=== PATIENT | female | born 1945 | race African-American/Black ===

== ENCOUNTER 2019-06-23 18:42 | Inpatient (IN) | payer MEDICARE, BC ==
[2019-06-23] MEDS ORDERED: NORMAL SALINE 1000 ML 1,000 ML IV ONE (19:28)
[2019-06-23 19:49] LABS: HEMATOCRIT 39.1 % (36.0-47.0); HEMOGLOBIN 13.1 g/dL (12.0-15.5); MEAN CORPUSCULAR HEMOGLOBIN 30.4 pg (27.0-33.4); MEAN CORPUSCULAR HGB CONC 33.6 g/dL (32.0-36.0); MEAN CORPUSCULAR VOLUME 90 fl (80-97); PLATELET COUNT 159 10^3/uL (150-450); RED BLOOD COUNT 4.32 10^6/uL (3.72-5.28); RED CELL DISTRIBUTION WIDTH 14.8 % (11.5-14.0); WHITE BLOOD COUNT 12.2 10^3/uL (4.0-10.5)
[2019-06-23 19:51] LABS: INTERNATIONAL RATION (INR) 1.11; PROTHROMBIN TIME 14.4 SEC (11.4-15.4)
[2019-06-23 19:52] LABS: APPEARANCE,URINE TURBID; BILIRUBIN,URINE NEGATIVE (NEGATIVE); COLOR,URINE AMBER; GLUCOSE, URINE NEGATIVE (NEGATIVE); KETONES,URINE NEGATIVE (NEGATIVE); PROTEIN,URINE 100 mg/dL (NEGATIVE); URINE SPECIFIC GRAVITY 1.013; UROBILINOGEN,URINE NEGATIVE mg/dL (<2.0)
[2019-06-23 20:01] LABS: ALBUMIN 3.6 g/dL (3.5-5.0); ALKALINE PHOSPHATASE 91 U/L (38-126); ANION GAP 10 (5-19); ASPARTATE AMINO TRANSFERASE 37 U/L (14-36); BILIRUBIN,DIRECT 0.3 mg/dL (0.0-0.4); BILIRUBIN,TOTAL 1.1 mg/dL (0.2-1.3); BLOOD UREA NITROGEN 19 mg/dL (7-20); CALCIUM 9.5 mg/dL (8.4-10.2); CARBON DIOXIDE 24 mmol/L (22-30); CHLORIDE 106 mmol/L (98-107); GLUCOSE 137 mg/dL (75-110); POTASSIUM 3.7 mmol/L (3.6-5.0)
[2019-06-23 20:07] LABS: TOTAL PROTEIN 6.7 g/dL (6.3-8.2)
[2019-06-23 20:22] LABS: ABSOLUTE LYMPHOCYTES# (MANUAL) 0.9 10^3/uL (0.5-4.7); ABSOLUTE MONOCYTES # (MANUAL) 1.7 10^3/uL (0.1-1.4); BAND NEUTROPHILS % (MANUAL) 3 % (3-5); BASOPHILS % (MANUAL) 0 % (0-2); EOSINOPHILS % (MANUAL) 0 % (0-6); LYMPHOCYTES % (MANUAL) 7 % (13-45); MONOCYTES % (MANUAL) 14 % (3-13); SEGMENTED NEUTROPHILS % (MAN) 76 % (42-78); TOTAL CELLS COUNTED 100
[2019-06-23 20:23] LABS: ANISOCYTOSIS SLIGHT; OVALOCYTES 1+; PLATELET COMMENT ADEQUATE; PLATELET LARGE PRESENT
[2019-06-23] MEDS ORDERED: CEFTRIAXONE 1 GM/D5W RTU 1 GM/50 ML RTUPB IV ONE (20:23)
[2019-06-23 21:02] LABS: VENOUS BLOOD BASE EXCESS 0.3 mmol/L; VENOUS BLOOD HCO3 25.3 mmol/L (20-32); VENOUS BLOOD PCO2 42.2 mmHg (35-63); VENOUS BLOOD PH 7.4 (7.30-7.42)
--- NOTE | 2019-06-23 22:52 | ER Document Report ---
ED General <CHANDNI BRIGGS - Last Filed: 06/24/19 09:26> - General TRAVEL OUTSIDE OF THE [place] IN LAST 30 DAYS: No <SEVERINO RICCI - Last Filed: 06/24/19 15:11> <LAURA SILVA - Last Filed: 06/24/19 15:52> - General Stated Complaint: WEAKNESS Time Seen by Provider: 06/23/19 20:22 - HPI Notes: Patient is a 73-year-old female the history of hemophilia who presents to the emergency department for evaluation. She states earlier today she just felt weak and poorly. She denies any known fevers prior to arrival. No nausea or vomiting. She does states she "did not feel good." No cough or shortness of breath. No runny nose or sore throat. She is been eating and drinking normally. The patient states she has had increased urinary frequency. She denies any diarrhea. (SEVERINO RICCI) - Related Data Allergies/Adverse Reactions: codeine Adverse Reaction (Verified 06/23/19 19:51) Past Medical History - General Information source: Patient - Social History Smoking Status: Former Smoker Chew tobacco use (# tins/day): No Frequency of alcohol use: None Drug Abuse: None Patient has suicidal ideation: No Patient has homicidal ideation: No Past Surgical History: Reports: Hx Pacemaker <SEVERINO RICCI - Last Filed: 06/24/19 15:11> - Social History Smoking Status: Unknown if Ever Smoked Family History: Reviewed & Not Pertinent <LAURA SILVA - Last Filed: 06/24/19 15:52> - Medical History Notes: Hemophilia (SEVERINO RICCI) Review of Systems - Review of Systems Constitutional: See HPI Genitourinary: See HPI -: Yes All other systems reviewed and negative <SEVERINO RICCI - Last Filed: 06/24/19 15:11> Physical Exam <SEVERINO RICCI - Last Filed: 06/24/19 15:11> - Vital signs Vitals: Resp BP Pulse Ox 18 126/59 H 98 06/23/19 19:32 06/23/19 19:32 06/23/19 19:32 - Notes Notes: This is a very pleasant 73-year-old female who appears her stated age, no acute distress. Vital signs reviewed, please refer to chart. Head is normocephalic, atraumatic. Pupils equal round, reactive to light. Neck is supple without meningismus. Heart is regular rate and rhythm. Lungs are clear to auscultation bilaterally. Abdomen is soft, mildly tender in the suprapubic region, normoactive bowel sounds throughout. No CVA tenderness. Extremities without cyanosis, clubbing. Posterior calves are nontender. Peripheral pulses are equal. Skin is warm and dry. Patient is awake, alert, neurological exam is nonfocal. (SEVERINO RICCI) Course - Laboratory Result Diagrams: 06/23/19 19:22 06/23/19 19:22 <CHANDNI BRIGGS - Last Filed: 06/24/19 09:26> - Laboratory Result Diagrams: 06/24/19 12:38 06/23/19 19:22 <SEVERINO RICCI - Last Filed: 06/24/19 15:11> - Laboratory Result Diagrams: 06/24/19 12:38 06/23/19 19:22 <LAURA SILVA - Last Filed: 06/24/19 15:52> - Re-evaluation Re-evalutation: 06/24/19 09:27 I was approached by the nurse to ascertain if we could give patient a dose of her Keflex. Patient was prescribed Keflex for her UTI. Patient has been waiting for her ride patiently since last night. 500 mg p.o. Keflex ordered. (CHANDNI BRIGGS) 06/23/19 22:49 Patient presents to the emergency department for evaluation. Her temperature is 100.2 here after Tylenol. She had a full septic work-up. She was given IV fluids. She has a very mild leukocytosis, but no other signs of organ dysfunction. She is feeling improved. She is found to have a urinary tract infection. This was sent for culture. I did give her IV Rocephin. She is only had symptoms for less than 24 hours. She has no nausea or vomiting. I will send her home with a prescription for Keflex. She is to follow-up closely with primary care this week. She understands if she develops worsening or new concerning symptoms of any sort she needs to return immediately to the emergency department for evaluation. She is amenable to this plan and was discharged. 06/24/19 02:12 I was notified by nursing that, while waiting for her ride, her temperature went back up to 100.5. Otherwise her vitals are stable, again she is not tachycardic or hypotensive. She is given 650 mg of Tylenol. Again she feels stable, improved, and comfortable with the idea of discharge. 06/24/19 15:11 I was notified upon my arrival to the ED the next day that patient's blood cultures had become positive. She was growing gram-negative bacteria. She had already been treated with Rocephin. Thankfully she was still in the emergency department. Medicine was contacted and she was admitted to the hospital. (SEVERINO RICCI) 06/24/19 12:06 I was informed by the staff that this nice patient had a blood culture turn + for gram - bacteria in her blood. Urine is + for E coli. I have discussed this with Dr. Brar and Dr. Castillo has graciously accepted the pt as an admission. (LAURA SILVA) - Vital Signs Vital signs: Temp Pulse Resp BP Pulse Ox 98.7 F 80 22 H 164/74 H 100 06/24/19 13:19 06/24/19 09:32 06/24/19 13:00 06/24/19 09:32 06/24/19 13:00 - Laboratory Laboratory results interpreted by me: 06/23/19 06/23/19 06/23/19 19:10 19:22 19:22 WBC 12.2 H RDW 14.8 H Lymphocytes % (Manual) 7 L Monocytes % (Manual) 14 H Abs Neuts (Manual) 9.6 H Abs Monocytes (Manual) 1.7 H Glucose 137 H AST 37 H Urine Protein 100 H Urine Blood MODERATE H Leukocyte Esterase Rfl LARGE H - EKG Interpretation by Me Additional EKG results interpreted by me: 06/23/19 22:51 AV pacing at 78 bpm (SEVERINO RICCI) Discharge <CHANDNI BRIGGS - Last Filed: 06/24/19 09:26> - Discharge Admitting Provider: Anna (Hospitalist) Unit Admitted: Medical Floor <SEVERINO RICCI - Last Filed: 06/24/19 15:11> - Discharge Admitting Provider: Anna (Hospitalist) Unit Admitted: Medical Floor <LAURA SILVA P - Last Filed: 06/24/19 15:52> - Discharge Clinical Impression: E coli bacteremia Sepsis Qualifiers: Sepsis type: Escherichia coli Sepsis acute organ dysfunction status: without acute organ dysfunction Qualified Code(s): A41.51 - Sepsis due to Escherichia coli [E. coli] Urinary tract infection Qualifiers: Urinary tract infection type: acute cystitis Hematuria presence: without hematuria Qualified Code(s): N30.00 - Acute cystitis without hematuria Condition: Stable Disposition: ADMITTED OBSERVATION
--- NOTE | 2019-06-23 22:57 | EKG REPORT ---
SEVERITY:- ABNORMAL ECG - A-V DUAL-PACED RHYTHM WITH SOME INHIBITION : Confirmed by: Kerri Fernando MD 23-Jun-2019 22:56:54
[2019-06-24] MEDS ORDERED: ACETAMINOPHEN 325 MG TABLET PO ONE ×3 (02:10→09:37)
[2019-06-24] MEDS ORDERED: CEPHALEXIN 500 MG CAPSULE PO ONE (09:26)
[2019-06-24 12:56] LABS: HEMATOCRIT 38.8 % (36.0-47.0); HEMOGLOBIN 12.7 g/dL (12.0-15.5); MEAN CORPUSCULAR HEMOGLOBIN 29.9 pg (27.0-33.4); MEAN CORPUSCULAR HGB CONC 32.8 g/dL (32.0-36.0); MEAN CORPUSCULAR VOLUME 91 fl (80-97); PLATELET COUNT 145 10^3/uL (150-450); RED BLOOD COUNT 4.26 10^6/uL (3.72-5.28); RED CELL DISTRIBUTION WIDTH 15.2 % (11.5-14.0)
[2019-06-24 13:34] LABS: ABSOLUTE LYMPHOCYTES# (MANUAL) 1.9 10^3/uL (0.5-4.7); ABSOLUTE MONOCYTES # (MANUAL) 1.8 10^3/uL (0.1-1.4); BAND NEUTROPHILS % (MANUAL) 3 % (3-5); BASOPHILS % (MANUAL) 1 % (0-2); EOSINOPHILS % (MANUAL) 1 % (0-6); LYMPHOCYTES % (MANUAL) 13 % (13-45); MONOCYTES % (MANUAL) 15 % (3-13); SEGMENTED NEUTROPHILS % (MAN) 64 % (42-78); TOTAL CELLS COUNTED 100
[2019-06-24 13:37] LABS: ANISOCYTOSIS SLIGHT; OVALOCYTES SLIGHT; PLATELET COMMENT DECREASED; PLATELET LARGE PRESENT; TEAR DROP CELLS SLIGHT; TOXIC GRANULATION SLIGHT; TOXIC VACUOLATION PRESENT
--- NOTE | 2019-06-24 13:46 | PDOC H&P ---
History of Present Illness Admission Date/PCP: 06/24/19 12:18 BHAKTI MCNALLY MD Patient complains of: fever History of Present Illness: NIEVES PRUITT is a 73 year old female with a past medical history of hemophilia who presented with fever. Patient reports that she is been having on and off fever and subjective chills in the past 2 to 3 days. She does report that she has also been experiencing urinary frequency. Denies hematuria or dysuria. In the ER, she was noted to have leukocytosis and urinary tract infection. Her blood culture also grew E. coli. Urine culture is growing gram-negative rods. Otherwise, he denies chest pain or shortness of breath. Past Surgical History Past Surgical History: Reports: Pacemaker Social History Smoking Status: Former Smoker Electronic Cigarette use?: No Family History Parental Family History Reviewed: Yes - No premature CAD Children Family History Reviewed: No Sibling(s) Family History Reviewed.: No Medication/Allergy Home Medications: Cephalexin Monohydrate [Keflex 500 mg Capsule] 500 mg PO QID #20 capsule 06/23/19 Allergies/Adverse Reactions: codeine Adverse Reaction (Verified 06/23/19 19:51) Review of Systems All systems: reviewed and no additional remarkable complaints except as stated - As mentioned in HPI Physical Exam Vital Signs: Temp Pulse Resp BP Pulse Ox 101.1 F H 80 18 164/74 H 99 06/24/19 09:32 06/24/19 09:32 06/24/19 09:32 06/24/19 09:32 06/24/19 09:32 Intake & Output 06/23/19 06/24/19 06/25/19 06:59 06:59 06:59 Intake Total 1050 Balance 1050 Weight 214 lb 15.211 oz General appearance: PRESENT: no acute distress, well-developed, well-nourished Head exam: PRESENT: atraumatic, normocephalic Eye exam: PRESENT: conjunctiva pink, EOMI, PERRLA. ABSENT: scleral icterus Ear exam: PRESENT: normal external ear exam Mouth exam: PRESENT: moist, tongue midline Neck exam: ABSENT: carotid bruit, JVD, lymphadenopathy, thyromegaly Respiratory exam: PRESENT: clear to auscultation jolene. ABSENT: rales, rhonchi, wheezes Cardiovascular exam: PRESENT: RRR. ABSENT: diastolic murmur, rubs, systolic murmur Pulses: PRESENT: normal dorsalis pedis pul GI/Abdominal exam: PRESENT: normal bowel sounds, soft. ABSENT: distended, guarding, mass, organolmegaly, rebound, tenderness Rectal exam: PRESENT: deferred Extremities exam: PRESENT: full ROM. ABSENT: calf tenderness, clubbing, pedal edema Neurological exam: PRESENT: alert, awake, oriented to person, oriented to place, oriented to time, oriented to situation, CN II-XII grossly intact. ABSENT: motor sensory deficit Results Laboratory Results: 06/23/19 19:22 06/23/19 19:22 06/23/19 06/23/19 06/23/19 19:10 19:22 19:22 WBC 12.2 H RBC 4.32 Hgb 13.1 Hct 39.1 MCV 90 MCH 30.4 MCHC 33.6 RDW 14.8 H Plt Count 159 Seg Neutrophils % Not Reportable VBG pH VBG pCO2 VBG HCO3 VBG Base Excess Sodium 139.9 Potassium 3.7 Chloride 106 Carbon Dioxide 24 Anion Gap 10 BUN 19 Creatinine 0.92 Est GFR ( Amer) > 60 Glucose 137 H Lactic Acid Calcium 9.5 Total Bilirubin 1.1 AST 37 H Alkaline Phosphatase 91 Total Protein 6.7 Albumin 3.6 Urine Color PERI Urine Appearance TURBID Urine pH 5.0 Ur Specific [place] 1.013 Urine Protein 100 H Urine Glucose (UA) NEGATIVE Urine Ketones NEGATIVE Urine Blood MODERATE H Urine RBC (Auto) 33 06/23/19 06/23/19 06/23/19 19:22 20:32 22:45 WBC RBC Hgb Hct MCV MCH MCHC RDW Plt Count Seg Neutrophils % VBG pH 7.40 VBG pCO2 42.2 VBG HCO3 25.3 VBG Base Excess 0.3 Sodium Potassium Chloride Carbon Dioxide Anion Gap BUN Creatinine Est GFR ( Amer) Glucose Lactic Acid 0.7 1.5 Calcium Total Bilirubin AST Alkaline Phosphatase Total Protein Albumin Urine Color Urine Appearance Urine pH Ur Specific [place] Urine Protein Urine Glucose (UA) Urine Ketones Urine Blood Urine RBC (Auto) 06/23/19 19:22 Troponin I 0.040 Assessment and Plan - Diagnosis (1) Acute pyelonephritis Is this a current diagnosis for this admission?: Yes Plan: Start patient IV Rocephin. Her blood culture also grew E. coli. Urine culture is growing gram-negative rods. (2) Sepsis Is this a current diagnosis for this admission?: Yes Plan: Secondary to pyelonephritis. Patient presented with leukocytosis and fever. She also has some thrombocytopenia and elevated AST. (3) E coli bacteremia Is this a current diagnosis for this admission?: Yes Plan: As per#1. 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 - Time Time Spent with patient: 25-34 minutes
[2019-06-24] MEDS: NORMAL SALINE 1000 ML 1,000 ML IV PRN (14:18)
[2019-06-24] MEDS: CEFTRIAXONE 1 GM/D5W RTU 1 GM/50 ML RTUPB IV SCH (18:29)
[2019-06-24] MEDS: ACETAMINOPHEN 325 MG TABLET PO PRN (22:43)
[2019-06-25] MEDS ORDERED: INFLUENZA QUAD (6MOS+) 2019-20 VAC 0.5 ML SYR IM ONE (03:29)
[2019-06-25] MEDS ORDERED: SIMETHICONE 80 MG TAB.CHEW PO ONE (11:00)
--- NOTE | 2019-06-25 13:43 | PDOC PROGRESS REPORT ---
Subjective Progress Note for:: 06/25/19 Subjective:: No acute event overnight. Upon encounter this morning, patient reports she feels better today. Denies chest pain or shortness of breath. Blood and urine cultures are growing E. coli. Reason For Visit: PYELONEPHRITIS, E.COLI BACTEREMIA Physical Exam Vital Signs: Temp Pulse Resp BP Pulse Ox 98.0 F 63 16 154/68 H 99 06/25/19 09:00 06/25/19 09:00 06/25/19 09:00 06/25/19 09:00 06/25/19 09:00 Intake & Output 06/24/19 06/25/19 06/26/19 06:59 06:59 06:59 Intake Total 1050 400 Balance 1050 400 Weight 214 lb 15.211 oz 207 lb 7.28 oz General appearance: PRESENT: no acute distress, well-developed, well-nourished Head exam: PRESENT: atraumatic, normocephalic Eye exam: PRESENT: conjunctiva pink, EOMI, PERRLA. ABSENT: scleral icterus Ear exam: PRESENT: normal external ear exam Mouth exam: PRESENT: moist, tongue midline Neck exam: ABSENT: carotid bruit, JVD, lymphadenopathy, thyromegaly Respiratory exam: PRESENT: clear to auscultation jolene. ABSENT: rales, rhonchi, wheezes Cardiovascular exam: PRESENT: RRR. ABSENT: diastolic murmur, rubs, systolic murmur Pulses: PRESENT: normal dorsalis pedis pul GI/Abdominal exam: PRESENT: normal bowel sounds, soft. ABSENT: distended, gu arding, mass, organolmegaly, rebound, tenderness Rectal exam: PRESENT: deferred Extremities exam: PRESENT: full ROM. ABSENT: calf tenderness, clubbing, pedal edema Neurological exam: PRESENT: alert, awake, oriented to person, CN II-XII grossly intact. ABSENT: motor sensory deficit Results Laboratory Results: 06/24/19 12:38 06/23/19 19:22 06/24/19 06/24/19 06/24/19 15:06 16:11 18:27 Lactic Acid Cancelled 1.6 1.2 06/23/19 19:10 Catheterized Urine Urine Culture - Final Escherichia Coli 06/23/19 20:32 Blood Blood Culture (PCR) - Final Escherichia Coli 02/26/20 19:22 Troponin I 0.040 Assessment and Plan - Diagnosis (1) Acute pyelonephritis Is this a current diagnosis for this admission?: Yes Plan: Blood and urine cultures are growing E. coli. Continue Rocephin. (2) Sepsis Qualifiers: Sepsis type: Escherichia coli Sepsis acute organ dysfunction status: without acute organ dysfunction Qualified Code(s): A41.51 - Sepsis due to Escherichia coli [E. coli] Is this a current diagnosis for this admission?: Yes Plan: Secondary to pyelonephritis. Patient presented with leukocytosis and fever. She also has some thrombocytopenia and elevated AST. (3) E coli bacteremia Is this a current diagnosis for this admission?: Yes Plan: As per#1. 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 - Time Time Spent with patient: 25-34 minutes
[2019-06-25] MEDS: CEFTRIAXONE 1 GM/D5W RTU 1 GM/50 ML RTUPB IV SCH (18:40)
--- NOTE | 2019-06-25 23:03 | RADIOLOGY REPORT (SQ) ---
EXAM DESCRIPTION: [facility]: CT ABDOMEN PELVIS WITHOUT IV CONTRAST CLINICAL HISTORY: 73 years Female; abd pain, pyelonephritis; TECHNIQUE: CT of the abdomen and pelvis without contrast. All CT scans at this facility use dose modulation, iterative reconstruction, and/or weight based dosing when appropriate to reduce radiation dose to as low as reasonably achievable. COMPARISON: None. FINDINGS: Small bilateral pleural effusions are less than 1 cm thick. Pacemaker wires are partially visualized. Abdomen: Liver:No focal lesions. No intrahepatic ductal distention. Gallbladder: There is likely small amount of pericholecystic edema. Mild fluid/edema also extends inferiorly into Morison's pouch. Pancreas:Within normal limits Spleen:Within normal limits Right kidney: No renal calculi. No definite ureteral calculi, although the ureter is mildly distended and there is artifact along the distal right ureter due to multiple surgical clips. Minimal right hydronephrosis. Left kidney:No hydronephrosis. No renal or ureteral calculi. Adrenal glands:Within normal limits Vascular structures:Within normal limits (although limited evaluation on noncontrast exam). Pelvis: Small bowel:No significant distention. Appendix:Within normal limits Colon:No distention or acute pericolonic edema. Minimal low-density fluid in the dependent portion of the pelvis. No free air. Bones: Chronic degenerative changes of the lumbar spine. No acute bone findings. Bladder: Unremarkable. Multiple pelvic phleboliths and surgical clips are noted. Uterus is not identified. Note that evaluation of the bowel and solid organs is somewhat limited due to lack of intravenous and oral contrast. IMPRESSION: 1. Pericholecystic edema and mild fluid/edema extending into Morison's pouch and in the pelvis, suspicious for acute cholecystitis. Consider gallbladder ultrasound. 2. Mild right hydroureter and hydronephrosis, but no definite calculi. Cannot exclude a distal right ureteral calculus due to artifact from pelvic surgical clips. Please correlate with urinalysis. 3. Bilateral pleural effusions
[2019-06-25] MEDS: NORMAL SALINE 1000 ML 1,000 ML IV PRN (23:49)
[2019-06-26 05:43] LABS: HEMATOCRIT 36.2 % (36.0-47.0); MEAN CORPUSCULAR HEMOGLOBIN 29.9 pg (27.0-33.4); MEAN CORPUSCULAR VOLUME 90 fl (80-97); PLATELET COUNT 144 10^3/uL (150-450); RED CELL DISTRIBUTION WIDTH 14.7 % (11.5-14.0); WHITE BLOOD COUNT 6.2 10^3/uL (4.0-10.5)
[2019-06-26 06:02] LABS: ANION GAP 7 (5-19); BLOOD UREA NITROGEN 20 mg/dL (7-20); CALCIUM 9.1 mg/dL (8.4-10.2); CARBON DIOXIDE 23 mmol/L (22-30); CHLORIDE 110 mmol/L (98-107); GLUCOSE 99 mg/dL (75-110); POTASSIUM 3.9 mmol/L (3.6-5.0)
[2019-06-26 06:05] LABS: ABSOLUTE LYMPHOCYTES# (MANUAL) 1.2 10^3/uL (0.5-4.7); ABSOLUTE MONOCYTES # (MANUAL) 1.7 10^3/uL (0.1-1.4); BASOPHILS % (MANUAL) 0 % (0-2); EOSINOPHILS % (MANUAL) 4 % (0-6); LYMPHOCYTES % (MANUAL) 20 % (13-45); PLATELET COMMENT DECREASED; RBC MORPHOLOGY COMMENT NORMO-CYTIC/CHROMIC; SEGMENTED NEUTROPHILS % (MAN) 48 % (42-78); TOTAL CELLS COUNTED 100; TOXIC VACUOLATION PRESENT
[2019-06-26 06:06] LABS: MONOCYTES % (MANUAL) 28 % (3-13)
[2019-06-26] MEDS: ACETAMINOPHEN 325 MG TABLET PO PRN (08:21)
--- NOTE | 2019-06-26 13:51 | PDOC PROGRESS REPORT ---
Subjective Progress Note for:: 06/26/19 Subjective:: 06/25: No acute event overnight. Upon encounter this morning, patient reports she feels better today. Denies chest pain or shortness of breath. Blood and urine cultures are growing E. coli. : No acute event overnight. Patient appears more awake and conversant today. She reports she feels better today. Denies chest pain or shortness of breath. She is AO to person and time and is able tell me its 06/26/19. She is able to remember me from yesterday but thinks that she is in [place]. Blood and urine cultures are growing E. coli. Reason For Visit: PYELONEPHRITIS, E.COLI BACTEREMIA Physical Exam Vital Signs: Temp Pulse Resp BP Pulse Ox 98.2 F 61 16 147/77 H 99 06/26/19 12:00 06/26/19 12:00 06/26/19 12:00 06/26/19 12:00 06/26/19 12:00 Intake & Output 06/25/19 06/26/19 06/27/19 06:59 06:59 06:59 Intake Total 400 1670 120 Balance 400 1670 120 Weight 207 lb 7.28 oz 211 lb 10.3 oz General appearance: PRESENT: no acute distress, well-developed, well-nourished Head exam: PRESENT: atraumatic, normocephalic Eye exam: PRESENT: conjunctiva pink, EOMI, PERRLA. ABSENT: scleral icterus Ear exam: PRESENT: normal external ear exam Mouth exam: PRESENT: moist, tongue midline Neck exam: ABSENT: carotid bruit, JVD, lymphadenopathy, thyromegaly Respiratory exam: PRESENT: clear to auscultation jolene. ABSENT: rales, rhonchi, wheezes Cardiovascular exam: PRESENT: RRR. ABSENT: diastolic murmur, rubs, systolic murmur Pulses: PRESENT: normal dorsalis pedis pul GI/Abdominal exam: PRESENT: normal bowel sounds, soft. ABSENT: distended, guarding, mass, organolmegaly, rebound, tenderness Rectal exam: PRESENT: deferred Extremities exam: PRESENT: full ROM. ABSENT: calf tenderness, clubbing, pedal edema Neurological exam: PRESENT: alert, awake, oriented to person, oriented to time, CN II-XII grossly intact. ABSENT: oriented to place, motor sensory deficit Results Laboratory Results: 06/26/19 04:40 06/26/19 04:40 06/26/19 06/26/19 04:40 04:40 WBC 6.2 RBC 4.00 Hgb 12.0 Hct 36.2 MCV 90 MCH 29.9 MCHC 33.0 RDW 14.7 H Plt Count 144 L Seg Neutrophils % Not Reportable Sodium 139.8 Potassium 3.9 Chloride 110 H Carbon Dioxide 23 Anion Gap 7 BUN 20 Creatinine 0.92 Est GFR ( Amer) > 60 Glucose 99 Calcium 9.1 06/23/19 20:32 Blood Blood Culture (PCR) - Final Escherichia Coli 06/23/19 20:32 Blood Blood Culture - Final Escherichia Coli 06/23/19 19:22 Troponin I 0.040 Impressions: Abdomen/Pelvis CT 06/25/19 00:00 IMPRESSION: 1. Pericholecystic edema and mild fluid/edema extending into Morison's pouch and in the pelvis, suspicious for acute cholecystitis. Consider gallbladder ultrasound. 2. Mild right hydroureter and hydronephrosis, but no definite calculi. Cannot exclude a distal right ureteral calculus due to artifact from pelvic surgical clips. Please correlate with urinalysis. 3. Bilateral pleural effusions Assessment and Plan - Diagnosis (1) Acute pyelonephritis Is this a current diagnosis for this admission?: Yes Plan: Blood and urine cultures are growing E. coli. Continue Rocephin. (2) Sepsis Qualifiers: Sepsis type: Escherichia coli Sepsis acute organ dysfunction status: without acute organ dysfunction Qualified Code(s): A41.51 - Sepsis due to Escherichia coli [E. coli] Is this a current diagnosis for this admission?: Yes Plan: Secondary to pyelonephritis. Patient presented with leukocytosis and fever. She also has some thrombocytopenia and elevated AST. (3) E coli bacteremia Is this a current diagnosis for this admission?: Yes Plan: As per#1. 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 - Time Time Spent with patient: 25-34 minutes
[2019-06-26] MEDS: CEFTRIAXONE 1 GM/D5W RTU 1 GM/50 ML RTUPB IV SCH (17:14)
[2019-06-27] MEDS: NORMAL SALINE 1000 ML 1,000 ML IV PRN (02:33)
[2019-06-27] MEDS: ACETAMINOPHEN 325 MG TABLET PO PRN (04:09)
[2019-06-27] MEDS ORDERED: HYDRALAZINE HCL INJ/PF 20 MG/1 ML SDV IV PRN (08:28)
[2019-06-27] MEDS: LOSARTAN POTASSIUM 50 MG TABLET PO SCH (09:08)
[2019-06-27] MEDS ORDERED: HALOPERIDOL LACTATE INJ 5 MG/1 ML VIAL IV PRN (10:12)
[2019-06-27] MEDS ORDERED: HALOPERIDOL LACTATE INJ 5 MG/1 ML VIAL IV ONE (10:45)
--- NOTE | 2019-06-27 11:25 | RADIOLOGY REPORT (SQ) ---
EXAM DESCRIPTION: U/S ABDOMEN LTD W/DOPPLER COMPLETED DATE/TIME: 06/27/2019 10:57 am REASON FOR STUDY: RUQ US, abd pain, assess for cholecystitis COMPARISON: CT dated 06/25/2019. TECHNIQUE: Dynamic and static grayscale images acquired of the abdomen and recorded on PACS. Additio nal selected color Doppler and spectral images recorded. LIMITATIONS: None. FINDINGS: PANCREAS: No masses. Visualized pancreatic duct normal caliber. LIVER: No masses. Echotexture normal. LIVER VASCULATURE: Normal directional flow of the main portal vein and hepatic veins. GALLBLADDER: No stones. Normal wall thickness. No pericholecystic fluid. ULTRASOUND-DETECTED FUCHS'S SIGN: Negative. INTRAHEPATIC DUCTS AND COMMON DUCT: CBD and intrahepatic ducts normal caliber. No filling defects. INFERIOR VENA CAVA: Normal flow. AORTA: No aneurysm. RIGHT KIDNEY: Normal size. Normal echogenicity. No solid or suspicious masses. No hydronephrosis. No calcifications. PERITONEAL AND RIGHT PLEURAL SPACE: No ascites or effusions. OTHER: No other significant findings. IMPRESSION: NORMAL RIGHT UPPER QUADRANT ULTRASOUND. TECHNICAL DOCUMENTATION: JOB ID: [id number] 2010 [employer]- All Rights Reserved Reading location - IP/workstation name: [email or web address]
--- NOTE | 2019-06-27 11:54 | PDOC PROGRESS REPORT ---
Subjective Progress Note for:: 06/27/19 Subjective:: 06/25: No acute event overnight. Upon encounter this morning, patient reports she feels better today. Denies chest pain or shortness of breath. Blood and urine cultures are growing E. coli. : No acute event overnight. Patient appears more awake and conversant today. She reports she feels better today. Denies chest pain or shortness of breath. She is AO to person and time and is able tell me its 06/26/19. She is able to remember me from yesterday but thinks that she is in [place]. Blood and urine cultures are growing E. coli. 06/26: No acute event overnight. Upon encounter this morning, patient denies acute complaints. Denies chest pain, shortness of breath or abdominal pain. Later after encounter, RN reported that patient was getting confused. On reassessment, she is oriented to person. She thinks that I am the physical therapist and keeps on saying she needs to get her clothes down the hallway. Otherwise, she is not in any distress. Reason For Visit: PYELONEPHRITIS, E.COLI BACTEREMIA Physical Exam Vital Signs: Temp Pulse Resp BP Pulse Ox 98.6 F 68 15 147/77 H 99 06/27/19 07:55 06/27/19 07:55 06/27/19 07:55 06/27/19 09:54 06/27/19 07:55 Intake & Output 06/26/19 06/27/19 06/28/19 06:59 06:59 06:59 Intake Total 1670 1290 Balance 1670 1290 Weight 211 lb 10.3 oz 208 lb 1.862 oz General appearance: PRESENT: no acute distress, well-developed, well-nourished Head exam: PRESENT: atraumatic, normocephalic Eye exam: PRESENT: conjunctiva pink, EOMI, PERRLA. ABSENT: scleral icterus Ear exam: PRESENT: normal external ear exam Mouth exam: PRESENT: moist, tongue midline Neck exam: ABSENT: carotid bruit, JVD, lymphadenopathy, thyromegaly Respiratory exam: PRESENT: clear to auscultation jolene. ABSENT: rales, rhonchi, wheezes Cardiovascular exam: PRESENT: RRR. ABSENT: diastolic murmur, rubs, systolic mu rmur Pulses: PRESENT: normal dorsalis pedis pul GI/Abdominal exam: PRESENT: normal bowel sounds, soft. ABSENT: distended, guarding, mass, organolmegaly, rebound, tenderness Rectal exam: PRESENT: deferred Extremities exam: PRESENT: full ROM. ABSENT: calf tenderness, clubbing, pedal edema Neurological exam: PRESENT: alert, awake, oriented to person, CN II-XII grossly intact. ABSENT: oriented to place, motor sensory deficit Results Laboratory Results: 06/26/19 04:40 06/26/19 04:40 06/26/19 04:40 TSH 1.32 06/23/19 19:22 Blood Blood Culture - Final Escherichia Coli 06/23/19 20:32 Blood Blood Culture (PCR) - Final Escherichia Coli 06/23/19 20:32 Blood Blood Culture - Final Escherichia Coli 06/23/19 19:22 Troponin I 0.040 Impressions: Abdomen/Pelvis CT 06/25/19 00:00 IMPRESSION: 1. Pericholecystic edema and mild fluid/edema extending into Morison's pouch and in the pelvis, suspicious for acute cholecystitis. Consider gallbladder ultrasound. 2. Mild right hydroureter and hydronephrosis, but no definite calculi. Cannot exclude a distal right ureteral calculus due to artifact from pelvic surgical clips. Please correlate with urinalysis. 3. Bilateral pleural effusions Abdomen Ultrasound 06/27/19 00:00 IMPRESSION: NORMAL RIGHT UPPER QUADRANT ULTRASOUND. Assessment and Plan - Diagnosis (1) Acute pyelonephritis Is this a current diagnosis for this admission?: Yes Plan: Blood and urine cultures are growing E. coli. Continue Rocephin. (2) Sepsis Qualifiers: Sepsis type: Escherichia coli Sepsis acute organ dysfunction status: without acute organ dysfunction Qualified Code(s): A41.51 - Sepsis due to Escherichia coli [E. coli] Is this a current diagnosis for this admission?: Yes Plan: Secondary to pyelonephritis. Patient presented with leukocytosis and fever. She also had some thrombocytopenia and elevated AST. (3) E coli bacteremia Is this a current diagnosis for this admission?: Yes Plan: As per#1. 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 (5) Acute metabolic encephalopathy Is this a current diagnosis for this admission?: Yes Plan: Possibly related to patient's sepsis. However her sepsis is imroving. Question if she has some underlying concurrent psychiatric issues. We will try to get records from PCP. - Time Time Spent with patient: 25-34 minutes
--- NOTE | 2019-06-27 13:33 | RADIOLOGY REPORT (SQ) ---
EXAM DESCRIPTION: CT HEAD WITHOUT COMPLETED DATE/TIME: 06/27/2019 1:21 pm REASON FOR STUDY: AMS COMPARISON: None. TECHNIQUE: Axial images acquired through the brain without intravenous contrast. Images reviewed wi th bone, brain and subdural windows. Additional sagittal and coronal reconstructions were generated. Images stored on PACS. All CT scanners at this facility use dose modulation, iterative reconstruction, and/or weight based d osing when appropriate to reduce radiation dose to as low as reasonably achievable (ALARA). [facility]: Dose Right [facility]: CareDose [facility]: Dose Right [facility]: Teradose 4D [facility]: [employer] RADIATION DOSE: CT Rad equipment meets quality standard of care and radiation dose reduction techniq ues were employed. CTDIvol: 53.2 mGy. DLP: 964 mGy-cm.mGy. LIMITATIONS: None. FINDINGS: VENTRICLES: Prominent. CEREBRUM: No masses. No hemorrhage. No midline shift. Areas of low density in the white matter mos t likely due to chronic micro-vascular ischemic change. No evidence for acute infarction. CEREBELLUM: No masses. No hemorrhage. No alteration of density. No evidence for acute infarction. EXTRAAXIAL SPACES: Age-related involutional change. No fluid collections. No masses. ORBITS AND GLOBE: No intra- or extraconal masses. Normal contour of globe without masses. CALVARIUM: No fracture. PARANASAL SINUSES: No fluid or mucosal thickening. SOFT TISSUES: No mass or hematoma. OTHER: No other significant finding. IMPRESSION: CHRONIC CHANGES OF ATROPHY AND MICROVASCULAR ISCHEMIA. NO ACUTE PROCESS. EVIDENCE OF ACUTE STROKE: NO. TECHNICAL DOCUMENTATION: JOB ID: [id number] Quality ID # [id number]: Final reports with documentation of one or more dose reduction techniques (e.g., Au tomated exposure control, adjustment of the mA and/or kV according to patient size, use of iterative reconstruction technique) 2010 [employer]- All Rights Reserved Reading location - IP/workstation name: [email or web address]
[2019-06-27] MEDS: CEFTRIAXONE 1 GM/D5W RTU 1 GM/50 ML RTUPB IV SCH (17:54)
[2019-06-28] MEDS: NORMAL SALINE 1000 ML 1,000 ML IV PRN (01:05)
[2019-06-28] MEDS: ACETAMINOPHEN 325 MG TABLET PO PRN ×2 (01:41→22:12)
[2019-06-28] MEDS: LOSARTAN POTASSIUM 50 MG TABLET PO SCH (09:07)
--- NOTE | 2019-06-28 12:15 | PDOC PROGRESS REPORT ---
Subjective Progress Note for:: 06/28/19 Subjective:: 06/25: No acute event overnight. Upon encounter this morning, patient reports she feels better today. Denies chest pain or shortness of breath. Blood and urine cultures are growing E. coli. : No acute event overnight. Patient appears more awake and conversant today. She reports she feels better today. Denies chest pain or shortness of breath. She is AO to person and time and is able tell me its 06/26/19. She is able to remember me from yesterday but thinks that she is in [place]. Blood and urine cultures are growing E. coli. 06/26: No acute event overnight. Upon encounter this morning, patient denies acute complaints. Denies chest pain, shortness of breath or abdominal pain. Later after encounter, RN reported that patient was getting confused. On reassessment, she is oriented to person. She thinks that I am the physical therapist and keeps on saying she needs to get her clothes down the hallway. Otherwise, she is not in any distress. 06/27: Patient had episodes of worsening confusion last night. She has lucid intervals where she is well oriented but does have episodes where she is fixated and just expressed that we are deliberately holding here against her will. She also verbalized nursing staff this morning that there were a group of people laughing at her in her room. Otherwise, she is participating with physical therapy and is not in acute distress. Unable to get hold of the next of kin at the moment. Unsure if she has underlying dementia or psych issues. Her sepsis has been resolving but she continues to have episodes of confusion and hallucinations. Will consult psych for further evaluation. Reason For Visit: PYELONEPHRITIS, E.COLI BACTEREMIA Physical Exam Vital Signs: Temp Pulse Resp BP Pulse Ox 98.4 F 83 16 148/76 H 100 06/28/19 07:20 06/28/19 07:20 06/28/19 07:20 06/28/19 07:20 06/28/19 07:20 Intake & Output 06/27/19 06/28/19 06/29/19 06:59 06:59 06:59 Intake Total 1290 1410 Balance 1290 1410 Weight 208 lb 1.862 oz 202 lb 6.15 oz General appearance: PRESENT: no acute distress, well-developed, well-nourished Head exam: PRESENT: atraumatic, normocephalic Eye exam: PRESENT: conjunctiva pink, EOMI, PERRLA. ABSENT: scleral icterus Ear exam: PRESENT: normal external ear exam Mouth exam: PRESENT: moist, tongue midline Neck exam: ABSENT: carotid bruit, JVD, lymphadenopathy, thyromegaly Respiratory exam: PRESENT: clear to auscultation jolene. ABSENT: rales, rhonchi, wheezes Cardiovascular exam: PRESENT: RRR. ABSENT: diastolic murmur, rubs, systolic murmur Pulses: PRESENT: normal dorsalis pedis pul GI/Abdominal exam: PRESENT: normal bowel sounds, soft. ABSENT: distended, guarding, mass, organolmegaly, rebound, tenderness Rectal exam: PRESENT: deferred Neurological exam: PRESENT: alert, awake, oriented to person, oriented to place, oriented to time, CN II-XII grossly intact. ABSENT: motor sensory deficit Results Laboratory Results: 06/26/19 04:40 06/26/19 04:40 06/23/19 19:22 Troponin I 0.040 Impressions: Abdomen/Pelvis CT 06/25/19 00:00 IMPRESSION: 1. Pericholecystic edema and mild fluid/edema extending into Morison's pouch and in the pelvis, suspicious for acute cholecystitis. Consider gallbladder ultrasound. 2. Mild right hydroureter and hydronephrosis, but no definite calculi. Cannot exclude a distal right ureteral calculus due to artifact from pelvic surgical clips. Please correlate with urinalysis. 3. Bilateral pleural effusions Abdomen Ultrasound 06/27/19 00:00 IMPRESSION: NORMAL RIGHT UPPER QUADRANT ULTRASOUND. Head CT 06/27/19 00:00 IMPRESSION: CHRONIC CHANGES OF ATROPHY AND MICROVASCULAR ISCHEMIA. NO ACUTE PROCESS. EVIDENCE OF ACUTE STROKE: NO. Assessment and Plan - Diagnosis (1) Acute pyelonephritis Is this a current diagnosis for this admission?: Yes Plan: Blood and urine cultures are growing E. coli. Continue Rocephin. (2) Sepsis Qualifiers: Sepsis type: Escherichia coli Sepsis acute organ dysfunction status: without acute organ dysfunction Qualified Code(s): A41.51 - Sepsis due to Escherichia coli [E. coli] Is this a current diagnosis for this admission?: Yes Plan: Secondary to pyelonephritis. Patient presented with leukocytosis and fever. She also had some thrombocytopenia and elevated AST. (3) E coli bacteremia Is this a current diagnosis for this admission?: Yes Plan: As per#1. 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 (5) Acute metabolic encephalopathy Is this a current diagnosis for this admission?: Yes Plan: Possibly related to patient's sepsis. However her sepsis is imroving. Question if she has some underlying concurrent psychiatric issues. We will try to get records from PCP. 06/27: CT of the head unremarkable. Sepsis is resolving but she continues to have episodes of confusion and hallucination. Will consult psych for further elevation. - Time Time Spent with patient: 25-34 minutes
[2019-06-28 14:34] LABS: PATH REVIEW PATHOLOGIST REVIEWED
[2019-06-28] MEDS: CEFTRIAXONE 1 GM/D5W RTU 1 GM/50 ML RTUPB IV SCH (17:20)
[2019-06-29] MEDS: NORMAL SALINE 1000 ML 1,000 ML IV PRN (05:44)
[2019-06-29] MEDS: LOSARTAN POTASSIUM 50 MG TABLET PO SCH (09:50)
--- NOTE | 2019-06-29 12:12 | PDOC PROGRESS REPORT ---
Subjective Progress Note for:: 06/29/19 Reason For Visit: PYELONEPHRITIS, E.COLI BACTEREMIA 06/29/2019 Patient admitted for pyelonephritis, E. coli Physical Exam Vital Signs: Temp Pulse Resp BP Pulse Ox 97.4 F 78 20 155/66 H 99 06/29/19 08:07 06/29/19 08:07 06/29/19 08:07 06/29/19 08:07 06/29/19 08:07 Intake & Output 06/28/19 06/29/19 06/30/19 06:59 06:59 06:59 Intake Total 1410 1770 Balance 1410 1770 Weight 91.8 kg 94.2 kg General appearance: PRESENT: no acute distress - Sitting up in bed in no distress Respiratory exam: PRESENT: clear to auscultation jolene. ABSENT: rales, rhonchi, wheezes Cardiovascular exam: PRESENT: RRR. ABSENT: diastolic murmur, rubs, systolic murmur Neurological exam: PRESENT: alert, awake, oriented to person, oriented to place, oriented to time, oriented to situation, CN II-XII grossly intact. ABSENT: motor sensory deficit Psychiatric exam: PRESENT: appropriate affect, normal mood. ABSENT: homicidal ideation, suicidal ideation Results Laboratory Results: 06/26/19 04:40 06/26/19 04:40 06/23/19 19:22 Troponin I 0.040 Impressions: Abdomen/Pelvis CT 06/25/19 00:00 IMPRESSION: 1. Pericholecystic edema and mild fluid/edema extending into Morison's pouch and in the pelvis, suspicious for acute cholecystitis. Consider gallbladder ultrasound. 2. Mild right hydroureter and hydronephrosis, but no definite calculi. Cannot exclude a distal right ureteral calculus due to artifact from pelvic surgical clips. Please correlate with urinalysis. 3. Bilateral pleural effusions Abdomen Ultrasound 06/27/19 00:00 IMPRESSION: NORMAL RIGHT UPPER QUADRANT ULTRASOUND. Head CT 06/27/19 00:00 IMPRESSION: CHRONIC CHANGES OF ATROPHY AND MICROVASCULAR ISCHEMIA. NO ACUTE PROCESS. EVIDENCE OF ACUTE STROKE: NO. Assessment and Plan - Diagnosis (1) Acute pyelonephritis Is this a current diagnosis for this admission?: Yes (2) E coli bacteremia Is this a current diagnosis for this admission?: Yes (3) Urinary tract infection Qualifiers: Urinary tract infection type: acute cystitis Hematuria presence: without hematuria Qualified Code(s): N30.00 - Acute cystitis without hematuria Is this a current diagnosis for this admission?: Yes - Plan Summary Summary: 06/29/2019 Pressure 97.4 pulse 78 blood pressure 155/66 O2 sat 99% on room air Labs have not been checked in several days we will repeat these today Blood cultures 2 out of 2 initially grew out E. coli second set of blood culture showed no growth in 72 hours Urine culture grew out E. coli as well.. Everything appears to be sensitive to Rocephin which is what she is on now Psychiatry has been consulted for episodes of hallucination and confusion. according to the chart patient was taking no psychiatric medications prior to coming in. CT head scan shows microvascular ischemic changes but no acute infarct Sepsis is clearing up. Waiting on [facility] for discharge placement. - Time Time Spent with patient: 25-34 minutes
[2019-06-29 13:10] LABS: HEMATOCRIT 38.1 % (36.0-47.0); MEAN CORPUSCULAR HEMOGLOBIN 30.6 pg (27.0-33.4); MEAN CORPUSCULAR HGB CONC 34.1 g/dL (32.0-36.0); MEAN CORPUSCULAR VOLUME 90 fl (80-97); PLATELET COUNT 236 10^3/uL (150-450); RED BLOOD COUNT 4.24 10^6/uL (3.72-5.28); RED CELL DISTRIBUTION WIDTH 14.7 % (11.5-14.0); WHITE BLOOD COUNT 4.2 10^3/uL (4.0-10.5)
[2019-06-29 13:30] LABS: ANION GAP 11 (5-19); BLOOD UREA NITROGEN 20 mg/dL (7-20); CALCIUM 9.3 mg/dL (8.4-10.2); CARBON DIOXIDE 26 mmol/L (22-30); CHLORIDE 107 mmol/L (98-107); GLUCOSE 129 mg/dL (75-110); POTASSIUM 3.8 mmol/L (3.6-5.0)
[2019-06-29 13:36] LABS: ABSOLUTE LYMPHOCYTES# (MANUAL) 2.4 10^3/uL (0.5-4.7); ABSOLUTE MONOCYTES # (MANUAL) 0.4 10^3/uL (0.1-1.4); BASOPHILS % (MANUAL) 1 % (0-2); EOSINOPHILS % (MANUAL) 2 % (0-6); LYMPHOCYTES % (MANUAL) 48 % (13-45); MONOCYTES % (MANUAL) 9 % (3-13); SEGMENTED NEUTROPHILS % (MAN) 30 % (42-78); TOTAL CELLS COUNTED 100
[2019-06-29 13:38] LABS: PLATELET COMMENT ADEQUATE; RBC MORPHOLOGY COMMENT NORMO-CYTIC/CHROMIC
[2019-06-29] MEDS: CEFTRIAXONE 1 GM/D5W RTU 1 GM/50 ML RTUPB IV SCH (17:18)
--- NOTE | 2019-06-29 20:55 | PDOC TRANSFER SUMMARY ---
Impression - Admit/DC Date/PCP Admission Date/Primary Care Provider: 06/24/19 12:25 BHAKTI MCNALLY MD Discharge Date: 06/30/19 - Discharge Diagnosis (1) Acute pyelonephritis Is this a current diagnosis for this admission?: Yes (2) E coli bacteremia Is this a current diagnosis for this admission?: Yes (3) Urinary tract infection Is this a current diagnosis for this admission?: Yes - Assessment Summary: 06/29/2019 Pressure 97.4 pulse 78 blood pressure 155/66 O2 sat 99% on room air Labs have not been checked in several days we will repeat these today Blood cultures 2 out of 2 initially grew out E. coli second set of blood culture showed no growth in 72 hours Urine culture grew out E. coli as well.. Everything appears to be sensitive to Rocephin which is what she is on now Psychiatry has been consulted for episodes of hallucination and confusion. according to the chart patient was taking no psychiatric medications prior to coming in. CT head scan shows microvascular ischemic changes but no acute infarct Sepsis is clearing up. Waiting on [facility] for discharge placement. Patient was originally admitted to the hospital for complaint of fever, chills for 2 to 3 days. Patient also had been having urinary frequency.. Patient's urine culture and set of blood cultures grew out E. coli second set of blood cultures were negative x72 hours Patient was admitted with #1 acute pyelonephritis #2 sepsis #3 E. coli bacteremia #4 hemophilia During my discussion with the patient she is awake alert oriented and shows no behavioral issues. I believe her hallucinations and confusion were on the basis of her sepsis which is cleared. Past for now is just wait and see what it is and it is coming back I faxed Patient will be discharged to [facility] facility on 06/30/2019 Patient's Rocephin will be transitioned to Keflex 250 mg 1 every 8 hours for the next 5 days. Medications include Cozaar 50 mg daily Patient is medically stable to transfer to group home facility - Additional Information Resuscitation Status: Full Code Discharge Diet: As Tolerated Discharge Activity: Activity As Tolerated Referrals: BHAKTI MCNALLY MD [Primary Care Provider] - Follow up as needed Prescriptions: Cephalexin Monohydrate [Keflex 500 mg Capsule] 500 mg PO QID #20 capsule Home Medications: Cephalexin Monohydrate [Keflex 500 mg Capsule] 500 mg PO QID #20 capsule 06/23/19 History of Present Illiness History of Present Illness: NIEVES PRUITT is a 73 year old female Physical Exam Vital Signs: Temp Pulse Resp BP Pulse Ox 97.2 F 62 20 118/40 L 97 06/29/19 17:32 06/29/19 17:32 06/29/19 17:32 06/29/19 17:32 06/29/19 12:17 Intake & Output 06/28/19 06/29/19 06/30/19 06:59 06:59 06:59 Intake Total 1410 1770 1168 Balance 1410 1770 1168 Weight 91.8 kg 94.2 kg Results Laboratory Results: WBC 4.2 10^3/uL (4.0-10.5) 06/29/19 12:52 RBC 4.24 10^6/uL (3.72-5.28) 06/29/19 12:52 Hgb 13.0 g/dL (12.0-15.5) 06/29/19 12:52 Hct 38.1 % (36.0-47.0) 06/29/19 12:52 MCV 90 fl (80-97) 06/29/19 12:52 MCH 30.6 pg (27.0-33.4) 06/29/19 12:52 MCHC 34.1 g/dL (32.0-36.0) 06/29/19 12:52 RDW 14.7 % (11.5-14.0) H 06/29/19 12:52 Plt Count 236 10^3/uL (150-450) 06/29/19 12:52 Lymph % (Auto) Not Reportable 06/29/19 12:52 [place] % (Auto) Not Reportable 06/29/19 12:52 Eos % (Auto) Not Reportable 06/29/19 12:52 Baso % (Auto) Not Reportable 06/29/19 12:52 Absolute Neuts (auto) Not Reportable 06/29/19 12:52 Absolute Lymphs (auto) Not Reportable 06/29/19 12:52 Absolute Monos (auto) Not Reportable 06/29/19 12:52 Absolute Eos (auto) Not Reportable 06/29/19 12:52 Absolute Basos (auto) Not Reportable 06/29/19 12:52 Total Counted 100 06/29/19 12:52 Seg Neutrophils % Not Reportable 06/29/19 12:52 Seg Neuts % (Manual) 30 % (42-78) L 06/29/19 12:52 Band Neutrophils % 3 % (3-5) 06/24/19 12:38 Lymphocytes % (Manual) 48 % (13-45) H 06/29/19 12:52 Atypical Lymphs % 10 % (0) 06/29/19 12:52 Monocytes % (Manual) 9 % (3-13) 06/29/19 12:52 Eosinophils % (Manual) 2 % (0-6) 06/29/19 12:52 Basophils % (Manual) 1 % (0-2) 06/29/19 12:52 Abs Neuts (Manual) 1.3 10^3/uL (1.7-8.2) L 06/29/19 12:52 Abs Lymphs (Manual) 2.4 10^3/uL (0.5-4.7) 06/29/19 12:52 Abs Monocytes (Manual) 0.4 10^3/uL (0.1-1.4) 06/29/19 12:52 Absolute Eos (Manual) 0.1 10^3/uL (0.0-0.6) 06/29/19 12:52 Abs Basophils (Manual) 0.0 10^3/uL (0.0-0.2) 06/29/19 12:52 Toxic Granulation SLIGHT 06/24/19 12:38 Toxic Vacuolation PRESENT 06/26/19 04:40 Dohle Bodies PRESENT 06/24/19 12:38 Large Platelets PRESENT 06/24/19 12:38 Platelet Comment ADEQUATE 06/29/19 12:52 Anisocytosis SLIGHT 06/24/19 12:38 Tear Drop Cells SLIGHT 06/24/19 12:38 Ovalocytes SLIGHT 06/24/19 12:38 RBC Morph Comment NORMO-CYTIC/CHROMIC 06/29/19 12:52 PT 14.4 SEC (11.4-15.4) 06/23/19 19:22 INR 1.11 06/23/19 19:22 VBG pH 7.40 (7.30-7.42) 06/23/19 20:32 VBG pCO2 42.2 mmHg (35-63) 06/23/19 20:32 VBG HCO3 25.3 mmol/L (20-32) 06/23/19 20:32 VBG Base Excess 0.3 mmol/L 06/23/19 20:32 Sodium 144.0 mmol/L (137-145) 06/29/19 12:52 Potassium 3.8 mmol/L (3.6-5.0) 06/29/19 12:52 Chloride 107 mmol/L (98-107) 06/29/19 12:52 Carbon Dioxide 26 mmol/L (22-30) 06/29/19 12:52 Anion Gap 11 (5-19) 06/29/19 12:52 BUN 20 mg/dL (7-20) 06/29/19 12:52 Creatinine 0.81 mg/dL (0.52-1.25) 06/29/19 12:52 Est GFR ( Amer) > 60 (>60) 06/29/19 12:52 Est GFR (MDRD) Non-Af > 60 (>60) 06/29/19 12:52 Glucose 129 mg/dL (75-110) H 06/29/19 12:52 Lactic Acid 1.2 mmol/L (0.7-2.1) 06/24/19 18:27 Calcium 9.3 mg/dL (8.4-10.2) 06/29/19 12:52 Total Bilirubin 1.1 mg/dL (0.2-1.3) 06/23/19 19:22 Direct Bilirubin 0.3 mg/dL (0.0-0.4) 06/23/19 19:22 Neonat Total Bilirubin Not Reportable 06/23/19 19:22 Neonat Direct Bilirubin Not Reportable 06/23/19 19:22 Neonat Indirect Bili Not Reportable 06/23/19 19:22 AST 37 U/L (14-36) H 06/23/19 19:22 ALT 25 U/L (<35) 06/23/19 19:22 Alkaline Phosphatase 91 U/L (38-126) 06/23/19 19:22 Troponin I 0.040 ng/mL 06/23/19 19:22 Total Protein 6.7 g/dL (6.3-8.2) 06/23/19 19:22 Albumin 3.6 g/dL (3.5-5.0) 06/23/19 19:22 TSH 1.32 uIU/mL (0.47-4.68) 06/26/19 04:40 Urine Color PERI 06/23/19 19:10 Urine Appearance TURBID 06/23/19 19:10 Urine pH 5.0 (5.0-9.0) 06/23/19 19:10 Ur Specific [place] 1.013 06/23/19 19:10 Urine Protein 100 mg/dL (NEGATIVE) H 06/23/19 19:10 Urine Glucose (UA) NEGATIVE mg/dL (NEGATIVE) 06/23/19 19:10 Urine Ketones NEGATIVE mg/dL (NEGATIVE) 06/23/19 19:10 Urine Blood MODERATE (NEGATIVE) H 06/23/19 19:10 Urine Nitrite (Reflex) NEGATIVE (NEGATIVE) 06/23/19 19:10 Urine Bilirubin NEGATIVE (NEGATIVE) 06/23/19 19:10 Urine Urobilinogen NEGATIVE mg/dL (<2.0) 06/23/19 19:10 Leukocyte Esterase Rfl LARGE (NEGATIVE) H 06/23/19 19:10 Urine RBC (Auto) 33 /HPF 06/23/19 19:10 Urine Bacteria (Auto) 1+ /HPF 06/23/19 19:10 Urine WBC (Reflex) > 182 /HPF 06/23/19 19:10 Urine WBC Clumps MANY /HPF 06/23/19 19:10 Urine Ascorbic Acid NEGATIVE (NEGATIVE) 06/23/19 19:10 Slides for Path Review PATHOLOGIST REVIEWED 06/26/19 04:40 06/23/19 19:22 Troponin I 0.040 Impressions: Abdomen/Pelvis CT 06/25/19 00:00 IMPRESSION: 1. Pericholecystic edema and mild fluid/edema extending into Morison's pouch and in the pelvis, suspicious for acute cholecystitis. Consider gallbladder ultrasound. 2. Mild right hydroureter and hydronephrosis, but no definite calculi. Cannot exclude a distal right ureteral calculus due to artifact from pelvic surgical clips. Please correlate with urinalysis. 3. Bilateral pleural effusions Abdomen Ultrasound 06/27/19 00:00 IMPRESSION: NORMAL RIGHT UPPER QUADRANT ULTRASOUND. Head CT 06/27/19 00:00 IMPRESSION: CHRONIC CHANGES OF ATROPHY AND MICROVASCULAR ISCHEMIA. NO ACUTE PROCESS. EVIDENCE OF ACUTE STROKE: NO. Stroke Is this a Stroke Patient?: No Acute Heart Failure - Is this a Heart Failure Patient?: No
[2019-06-30] MEDS: LOSARTAN POTASSIUM 50 MG TABLET PO SCH (09:20)
[2019-06-30 10:03] VITALS: BP 174/79
[2019-06-30] MEDS: ACETAMINOPHEN 325 MG TABLET PO PRN (11:14)
== END 2019-06-30 13:53 | DRG 871 ==
LOC: ER 18:42 → EH 06-24 12:18 → OBSVTOIN 06-24 12:25 → 4N 06-24 21:06
PROVIDERS: ADMIT Internal Medicine; ATTEND Internal Medicine
DX: A41.51 Sepsis due to Escherichia coli [E. coli] (principal); D66 Hereditary factor VIII deficiency; N10 Acute pyelonephritis; R44.3 Hallucinations, unspecified; R41.0 Disorientation, unspecified; Z95.0 Presence of cardiac pacemaker; Z87.891 Personal history of nicotine dependence; Z88.5 Allergy status to narcotic agent
CPT/HCPCS: 36415; 70450; 74176; 76705; 80048; 80053; 81001; 82803; 83605; 84443; 84484; 85025; 85610; 87040; 87077; 87086; 87088; 87150; 87186; 93005; 93010; 93976; 96361; 96365; 99284; J0360; J0696; J1630; J7030

== ENCOUNTER 2020-02-14 13:10 | Observation (INO) | payer MEDICARE, BC ==
[2020-02-14 13:50] LABS: APPEARANCE,URINE CLEAR; BILIRUBIN,URINE NEGATIVE (NEGATIVE); COLOR,URINE STRAW; GLUCOSE, URINE NEGATIVE (NEGATIVE); KETONES,URINE 20 mg/dL (NEGATIVE); LEUKOCYTE ESTERASE,URINE NEGATIVE (NEGATIVE); NITRITE,URINE NEGATIVE (NEGATIVE); PROTEIN,URINE NEGATIVE (NEGATIVE); URINE SPECIFIC GRAVITY 1.013; UROBILINOGEN,URINE NEGATIVE mg/dL (<2.0)
[2020-02-14 14:07] LABS: ABSOLUTE LYMPHOCYTES (AUTO) 0.7 10^3/uL (0.5-4.7); ABSOLUTE MONOCYTES (AUTO) 0.2 10^3/uL (0.1-1.4); ABSOLUTE NEUT (AUTO) 6.5 10^3/uL (1.7-8.2); BASOPHILS % (AUTO) 0.5 % (0-2); HEMATOCRIT 43.3 % (36.0-47.0); HEMOGLOBIN 14.9 g/dL (12.0-15.5); LYMPHOCYTES % (AUTO) 9.1 % (13-45); MEAN CORPUSCULAR HEMOGLOBIN 31.5 pg (27.0-33.4); MEAN CORPUSCULAR HGB CONC 34.5 g/dL (32.0-36.0); MEAN CORPUSCULAR VOLUME 91 fl (80-97); MONOCYTES % (AUTO) 2.4 % (3-13); PLATELET COUNT 189 10^3/uL (150-450); RED BLOOD COUNT 4.74 10^6/uL (3.72-5.28); RED CELL DISTRIBUTION WIDTH 14.3 % (11.5-14.0); TOTAL CELLS COUNTED % (AUTO) 100 %; WHITE BLOOD COUNT 7.4 10^3/uL (4.0-10.5)
[2020-02-14 14:50] LABS: ALBUMIN 4.9 g/dL (3.5-5.0); ALKALINE PHOSPHATASE 69 U/L (38-126); ANION GAP 14 (5-19); ASPARTATE AMINO TRANSFERASE 42 U/L (14-36); BILIRUBIN,DIRECT 0.6 mg/dL (0.0-0.4); BILIRUBIN,TOTAL 1.2 mg/dL (0.2-1.3); BLOOD UREA NITROGEN 22 mg/dL (7-20); CALCIUM 10.8 mg/dL (8.4-10.2); CARBON DIOXIDE 21 mmol/L (22-30); CHLORIDE 105 mmol/L (98-107); GLUCOSE 105 mg/dL (75-110); POTASSIUM 5.5 mmol/L (3.6-5.0); TOTAL PROTEIN 8.7 g/dL (6.3-8.2)
[2020-02-14] MEDS ORDERED: NORMAL SALINE 1000 ML 1,000 ML IV ONE (14:53)
--- NOTE | 2020-02-14 15:06 | ER Document Report ---
ED General - General Chief Complaint: Urinary Problem Stated Complaint: WEAKNESS Time Seen by Provider: 02/14/20 14:05 Primary Care Provider: LACHELLE ALLAN MD [Primary Care Provider] - Follow up as needed TRAVEL OUTSIDE OF THE [place] IN LAST 30 DAYS: No - HPI Notes: Patient is a 74-year-old female with a history of hemophilia presents to the emergency department for evaluation. She can offer me little in the way of history. What I can gather is that there was concern about a urinary tract infection. She had been increasingly confused. The patient states her sister and the home health nurse told her that she should come to the ER, call 911. The patient admits to urinary frequency. She denies any fevers or chills. No cough or shortness of breath. Normal bowel movements. She states she has some low back pain but that is chronic in nature, does not seem to be different than normal. She denies any hematuria. She denies any changes in her medications, but cannot tell me what any of her medications are. At first she tells me she lives alone, then admits she lives with her sister. - Related Data Allergies/Adverse Reactions: codeine Adverse Reaction (Verified 06/23/19 19:51) Home Medications: Unknown at this time Past Medical History - General Information source: Patient - Social History Smoking Status: Never Smoker Chew tobacco use (# tins/day): No Frequency of alcohol use: None Drug Abuse: None Family History: Reviewed & Not Pertinent - Past Medical History Cardiac Medical History: Reports: Hx Hypertension Other: History of hemophilia, patient is unsure which type Past Surgical History: Reports: Hx Pacemaker Review of Systems - Review of Systems Constitutional: Weakness EENT: No symptoms reported Cardiovascular: No symptoms reported Respiratory: No symptoms reported Gastrointestinal: No symptoms reported Genitourinary: See HPI Female Genitourinary: No symptoms reported Musculoskeletal: See HPI Hematologic/Lymphatic: No symptoms reported Neurological/Psychological: See HPI -: Yes All other systems reviewed and negative Physical Exam - Vital signs Vitals: Temp Pulse Resp BP Pulse Ox 98.8 F 78 20 161/69 H 95 02/14/20 13:16 02/14/20 13:16 02/14/20 13:16 02/14/20 13:16 02/14/20 13:16 - Notes Notes: This is a frail-appearing 74-year-old female, who appears her stated age, no acute distress. She appears drowsy, awakes to verbal stimuli, but closes her eyes quickly again. Vital signs reviewed, please refer to chart. Head is normocephalic, atraumatic. Pupils pinpoint. Neck is supple without meningismus. Heart is regular rate and rhythm. Lungs are clear to auscultation bilaterally. Abdomen is soft, nontender, normoactive bowel sounds throughout. Extremities without cyanosis, clubbing. Posterior calves are nontender. Peripheral pulses are equal. Skin is warm and dry. Patient is drowsy. She has some difficulty following commands. She is disoriented to place and time. She tells me she is in [place], [place], tells me it is 2020. She is eventually able to identify the president, although would take several minutes. No gross facial asymmetry. 4 out of 5 strength bilateral upper and lower extremities. Reflexes are diminished but symmetrical. Sensation appears to be intact. Course - Re-evaluation Re-evalutation: 02/14/20 15:08 Patient presents to the emergency department for evaluation of altered mental status. She had laboratory investigations as per protocol. Her urine shows a small amount of red blood cells and white blood cells, but certainly not overwhelming signs of infection. Cultures were added. I did also add blood cultures, EKG, urine drug screen, CT head, chest x-ray. Her vitals are currently stable. We will continue to monitor. 02/14/20 15:[address] scan, patient's pupils do remain small. Given her drowsiness and altered mental status, I am concerned about potential opiate overdose being an issue at this time. I will give a small dose of Narcan and evaluate for response. 02/14/20 16:20 Patient did not respond in any way to Narcan. Patient's sister did present to the ER. She states that starting yesterday she was acting increasingly confused. She started hallucinating, seeing people in the home, acting increasingly confused so she brought her here to the ED for further evaluation. 02/14/20 17:06 Patient remained stable. Still awaiting troponin and proBNP. Urine drug screen is unremarkable. I spoke with Dr. Moore. She asks that an ABG and an MRI be performed. These are both ordered. She has that the patient be admitted for observation, states she will determine the appropriate floor once ABG is resulted. - Vital Signs Vital signs: Temp Pulse Resp BP Pulse Ox 98.8 F 78 20 161/69 H 95 02/14/20 13:16 02/14/20 13:16 02/14/20 13:16 02/14/20 13:16 02/14/20 13:16 - Laboratory Result Diagrams: 02/14/20 13:45 02/14/20 13:45 Laboratory results interpreted by me: 02/14/20 02/14/20 02/14/20 13:30 13:45 13:45 RDW 14.3 H Lymph % (Auto) 9.1 L Grundy % (Auto) 2.4 L Seg Neutrophils % 88.0 H Potassium 5.5 H Carbon Dioxide 21 L BUN 22 H Calcium 10.8 H Direct Bilirubin 0.6 H AST 42 H NT-Pro-B Natriuret Pep Total Protein 8.7 H Urine Ketones 20 H Urine Blood SMALL H Urine Ascorbic Acid 40 H Acetaminophen 02/14/20 02/14/20 13:45 13:45 RDW Lymph % (Auto) Grundy % (Auto) Seg Neutrophils % Potassium Carbon Dioxide BUN Calcium Direct Bilirubin AST NT-Pro-B Natriuret Pep 1230 H Total Protein Urine Ketones Urine Blood Urine Ascorbic Acid Acetaminophen < 10 L - Diagnostic Test Radiology reviewed: Reports reviewed Radiology results interpreted by me: 02/14/20 15:[address] 02/14/20 14:53 IMPRESSION: MILD CHRONIC CHANGES OF ATROPHY AND MICROVASCULAR ISCHEMIA. NO ACUTE PROCESS. EVIDENCE OF ACUTE STROKE: NO. Chest X-Ray 02/14/20 14:55 IMPRESSION: NO ACUTE RADIOGRAPHIC FINDING IN THE CHEST. - EKG Interpretation by Me Additional EKG results interpreted by me: 02/14/20 16:42 AV paced with a rate of 78 bpm. Right bundle branch block. No change from prior study earlier this year. Discharge - Discharge Clinical Impression: Altered mental status, Hyperkalemia Condition: Stable Disposition: ADMITTED OBSERVATION Admitting Provider: Oscar (Hospitalist) Unit Admitted: Telemetry Referrals: LACHELLE ALLAN MD [Primary Care Provider] - Follow up as needed
--- NOTE | 2020-02-14 15:24 | RADIOLOGY REPORT (SQ) ---
EXAM DESCRIPTION: CT HEAD WITHOUT IMAGES COMPLETED DATE/TIME: 02/14/2020 3:11 pm REASON FOR STUDY: altered mental status COMPARISON: None. TECHNIQUE: Axial images acquired through the brain without intravenous contrast. Images reviewed wi th bone, brain and subdural windows. Additional sagittal and coronal reconstructions were generated. Images stored on PACS. All CT scanners at this facility use dose modulation, iterative reconstruction, and/or weight based d osing when appropriate to reduce radiation dose to as low as reasonably achievable (ALARA). [facility]: Dose Right [facility]: CareDose [facility]: Dose Right [facility]: Teradose 4D [facility]: [employer] RADIATION DOSE: CT Rad equipment meets quality standard of care and radiation dose reduction techniq ues were employed. CTDIvol: 53.2 mGy. DLP: 1177 mGy-cm. mGy. LIMITATIONS: None. FINDINGS: VENTRICLES: Age appropriate CEREBRUM: No masses. No hemorrhage. No midline shift. Areas of low density in the white matter mos t likely due to chronic micro-vascular ischemic change. No evidence for acute infarction. CEREBELLUM: No masses. No hemorrhage. No alteration of density. No evidence for acute infarction. EXTRAAXIAL SPACES: Mild age-related involutional change. No fluid collections. No masses. ORBITS AND GLOBE: No intra- or extraconal masses. Normal contour of globe without masses. CALVARIUM: No fracture. PARANASAL SINUSES: No fluid or mucosal thickening. SOFT TISSUES: No mass or hematoma. OTHER: No other significant finding. IMPRESSION: MILD CHRONIC CHANGES OF ATROPHY AND MICROVASCULAR ISCHEMIA. NO ACUTE PROCESS. EVIDENCE OF ACUTE STROKE: NO. TECHNICAL DOCUMENTATION: JOB ID: [id number] Quality ID # [id number]: Final reports with documentation of one or more dose reduction techniques (e.g., Au tomated exposure control, adjustment of the mA and/or kV according to patient size, use of iterative reconstruction technique) 2010 [employer]- All Rights Reserved Reading location - IP/workstation name: [email or web address]
--- NOTE | 2020-02-14 15:28 | RADIOLOGY REPORT (SQ) ---
EXAM DESCRIPTION: CHEST 2 VIEWS IMAGES COMPLETED DATE/TIME: 02/14/2020 3:16 pm REASON FOR STUDY: altered mental status COMPARISON: None. EXAM PARAMETERS: NUMBER OF VIEWS: two views TECHNIQUE: Digital Frontal and Lateral radiographic views of the chest acquired. RADIATION DOSE: NA LIMITATIONS: none FINDINGS: LUNGS AND PLEURA: No opacities, masses or pneumothorax. No pleural effusion. MEDIASTINUM AND HILAR STRUCTURES: No masses or contour abnormalities. HEART AND VASCULAR STRUCTURES: Heart normal size. No evidence for failure. BONES: No acute findings. HARDWARE: Left-sided cardiac pacer with leads overlying right atrium and right ventricle. OTHER: No other significant finding. IMPRESSION: NO ACUTE RADIOGRAPHIC FINDING IN THE CHEST. TECHNICAL DOCUMENTATION: JOB ID: [id number] 2010 [employer]- All Rights Reserved Reading location - IP/workstation name: [email or web address]
[2020-02-14] MEDS ORDERED: NALOXONE HCL INJ/PF 0.4 MG/1 ML SDV IV ONE (15:34)
[2020-02-14 16:45] LABS: URINE AMPHETAMINES SCREEN NEGATIVE; URINE BARBITURATES SCREEN NEGATIVE; URINE BENZODIAZEPINES SCREEN NEGATIVE; URINE COCAINE SCREEN NEGATIVE; URINE MARIJUANA (THC) SCREEN NEGATIVE; URINE METHADONE SCREEN NEGATIVE; URINE PHENCYCLIDINE SCREEN NEGATIVE
[2020-02-14 17:05] LABS: TROPONIN I 0.036 ng/mL
--- NOTE | 2020-02-14 18:53 | EKG REPORT ---
SEVERITY:- ABNORMAL ECG - ATRIAL-VENTRICULAR DUAL-PACED COMPLEXES : Confirmed by: Rohit Diallo MD 14-Feb-2020 18:53:31
[2020-02-14] MEDS ORDERED: ACETAMINOPHEN 325 MG TABLET PO PRN (20:04)
--- NOTE | 2020-02-14 20:44 | PDOC H&P ---
History of Present Illness Admission Date/PCP: LACHELLE ALLAN MD Patient complains of: altered mental status History of Present Illness: NIEVES PRUITT is a 74 year old female, past medical history of stomach cancer who was brought to the ED due to altered mental status. Most of the history obtained from the patient's sister who is also her healthcare power of assistant county attorney. According to her sister she has been very lethargic for the past 2 weeks, with associated urinary frequency, constipation, abdominal pain. Her sister also stated that she has hallucinations both visual and auditory. Upon further history, her sister mentioned that the patient has been taking a lot of Tums and Rolaids for stomach pains. She has had to replace a big bottle of Tums that she has finished recently. She was also noted to have bilateral leg swelling. The sister denied any episodes of fever, cough, chest pain. The sister has been taking care of the patient for the past year but prior to that the patient was living in [place] alone. Apparently the patient was living in squalor at her home unable to take care of herself with trash all over her room hands the erica blount's sister took her back here and has been living with her ever since. He also told me that she was previously diagnosed with stomach cancer that is malignant. However she is not aware what was done for that. The patient also has a pacemaker but the sister is unaware as to the reason why she has a pacemaker. G0 vital signs blood pressure 161/69, heart rate of 78, temperature 98.8, O2 sat 95% on room air. CBC was unremarkable, CMP showed sodium 140.2, potassium 5.5, creatinine 0.79, calcium 10.8. Troponin 0.0 36, proBNP 1230, total protein 8.7. CT head was normal, x-ray unremarkable, EKG showed paced rhythm. Hospitalist service was consulted for admission for further evaluation and management. Past Medical History Cardiac Medical History: Reports: Hypertension Pulmonary Medical History: Reports: None Neurological Medical History: Reports: None Renal/ Medical History: Reports: None Malignancy Medical History: Reports: Other - gastric cancer GI Medical History: Reports: Gastroesophageal Reflux Disease Hematology: Reports: Hemophilia Past Surgical History Past Surgical History: Reports: Pacemaker Social History Smoking Status: Never Smoker Electronic Cigarette use?: No Frequency of Alcohol Use: None Hx Prescription Drug Abuse: No Family History Family History: Reviewed & Not Pertinent Parental Family History Reviewed: Yes Children Family History Reviewed: Yes Sibling(s) Family History Reviewed.: Yes Medication/Allergy Home Medications: Cephalexin Monohydrate [Keflex 500 mg Capsule] 500 mg PO QID #20 capsule 06/23/19 Allergies/Adverse Reactions: codeine Adverse Reaction (Verified 06/23/19 19:51) Review of Systems Constitutional: PRESENT: anorexia, fatigue Cardiovascular: PRESENT: edema. ABSENT: chest pain, orthropnea Gastrointestinal: PRESENT: abdominal pain, heartburn - increased frequency Genitourinary: PRESENT: as per HPI Musculoskeletal: PRESENT: muscle weakness Neurological: PRESENT: confusion Psychiatric: PRESENT: hallucinations Physical Exam Vital Signs: Temp Pulse Resp BP Pulse Ox 98.8 F 78 20 161/69 H 95 02/14/20 13:16 02/14/20 13:16 02/14/20 13:16 02/14/20 13:16 02/14/20 13:16 General appearance: PRESENT: no acute distress, cooperative Head exam: PRESENT: atraumatic, normocephalic Eye exam: PRESENT: EOMI, PERRLA Mouth exam: PRESENT: moist, neck supple Neck exam: PRESENT: full ROM Respiratory exam: PRESENT: clear to auscultation jolene, symmetrical, unlabored. ABSENT: rales Cardiovascular exam: PRESENT: RRR Results Laboratory Results: 02/14/20 13:45 02/14/20 13:45 02/14/20 02/14/20 02/14/20 13:30 13:45 13:45 WBC 7.4 RBC 4.74 Hgb 14.9 Hct 43.3 MCV 91 MCH 31.5 MCHC 34.5 RDW 14.3 H Plt Count 189 Seg Neutrophils % 88.0 H Sodium 140.2 Potassium 5.5 H Chloride 105 Carbon Dioxide 21 L Anion Gap 14 BUN 22 H Creatinine 0.79 Est GFR ( Amer) > 60 Glucose 105 Calcium 10.8 H Total Bilirubin 1.2 AST 42 H Alkaline Phosphatase 69 Total Protein 8.7 H Albumin 4.9 Urine Color STRAW Urine Appearance CLEAR Urine pH 5.0 Ur Specific Clarence 1.013 Urine Protein NEGATIVE Urine Glucose (UA) NEGATIVE Urine Ketones 20 H Urine Blood SMALL H Urine Nitrite NEGATIVE Ur Leukocyte Esterase NEGATIVE Urine WBC (Auto) 6 Urine RBC (Auto) 6 02/14/20 13:45 Troponin I 0.036 NT-Pro-B Natriuret Pep 1230 H Impressions: Head CT 02/14/20 14:53 IMPRESSION: MILD CHRONIC CHANGES OF ATROPHY AND MICROVASCULAR ISCHEMIA. NO ACUTE PROCESS. EVIDENCE OF ACUTE STROKE: NO. Chest X-Ray 02/14/20 14:55 IMPRESSION: NO ACUTE RADIOGRAPHIC FINDING IN THE CHEST. Assessment and Plan - Diagnosis (1) Acute metabolic encephalopathy Is this a current diagnosis for this admission?: Yes Plan: -Been having hallucinations, urinary frequency, constipation and was very lethargic the past 2 weeks -No fever no meningeal signs -CT head negative -Calcium 10.8. Per history she has been consuming a lot of Tums for her stomach pains and this can explain the cause of her altered mental status. -Plan to hydrate her with IV fluids cautiously since she has an elevated BNP and leg edema. -She may also have an undiagnosed psychiatric condition based on history and a p sych consult can be considered in the morning (2) Hypercalcemia Is this a current diagnosis for this admission?: Yes Plan: -Calcium 10.8 repeat pending -History of increased Tums and Rolaids intake. -Total protein 8.7 coupled with elevated calcium may also suggest multiple myeloma -Ordered PTH, PTH RP, vitamin D, 125 vitamin D for work-up of hypercalcemia -We will continue IV fluids for hypercalcemia (3) Hyperkalemia Is this a current diagnosis for this admission?: Yes Plan: -Potassium 5.5 -EKG paced rhythm -Continue to monitor (4) Elevated brain natriuretic peptide (BNP) level Is this a current diagnosis for this admission?: Yes Plan: - BNP 1230 - trop 0.036 will trend -+ve leg edema - has a PM but unknown CHF diagnosis - echo pending - daily weights - strict IO - reassess volume status for signs of fluid overload (5) Elevated troponin I level Is this a current diagnosis for this admission?: Yes Plan: - Trop 0.036 no active chest pain -EKG showed paced rhythm -Patient also has elevated BNP, and leg edema so troponin leak may be secondary to undiagnosed CHF. -Trend troponin -Started on aspirin -Consider beta-rubén ALINA inhibitor and statin if echo shows CHF -Trend troponin (6) Gastric malignant neoplasm Qualifiers: Malignant neoplasm of stomach location: unspecified location Qualified Code(s): C16.9 - Malignant neoplasm of stomach, unspecified Is this a current diagnosis for this admission?: Yes Plan: -Her sister and healthcare power of assistant county attorney stated that she has a history of gastric malignancy however she is unsure what was done for it or what the stage was. -CT abdomen and pelvis ordered - Time Time Spent with patient: 35 or more minutes Anticipated Discharge Disposition: Home, Self Care Anticipated Discharge Timeframe: to be determined
[2020-02-14 21:59] LABS: ARTERIAL BLOOD BASE EXCESS -0.2 mmol/L; ARTERIAL BLOOD FIO2 ROOM AIR; ARTERIAL BLOOD H2CO3 1.12 mmol/L (1.05-1.35); ARTERIAL BLOOD HCO3 23.9 mmol/L (20-24); ARTERIAL BLOOD O2 SATURATION 96.5 % (94-98); ARTERIAL BLOOD PCO2 37.2 mmHg (35-45); ARTERIAL BLOOD PH 7.43 (7.35-7.45); ARTERIAL BLOOD PO2 83.1 mmHg (80-100)
[2020-02-14 22:04] LABS: ALBUMIN 4.4 g/dL (3.5-5.0); ALKALINE PHOSPHATASE 64 U/L (38-126); ANION GAP 9 (5-19); ASPARTATE AMINO TRANSFERASE 32 U/L (14-36); BILIRUBIN,DIRECT 0.3 mg/dL (0.0-0.4); BILIRUBIN,TOTAL 0.9 mg/dL (0.2-1.3); BLOOD UREA NITROGEN 19 mg/dL (7-20); CALCIUM 10.3 mg/dL (8.4-10.2); CARBON DIOXIDE 26 mmol/L (22-30); CHLORIDE 103 mmol/L (98-107); GLUCOSE 99 mg/dL (75-110); TOTAL PROTEIN 7.6 g/dL (6.3-8.2)
[2020-02-14 22:10] LABS: POTASSIUM 4.1 mmol/L (3.6-5.0)
--- NOTE | 2020-02-14 22:56 | ADVANCED CARE ---
- Diagnosis (1) Acute metabolic encephalopathy Diagnosis Current: Yes (2) Hypercalcemia Diagnosis Current: Yes (3) Hyperkalemia Diagnosis Current: Yes (4) Elevated brain natriuretic peptide (BNP) level Diagnosis Current: Yes (5) Elevated troponin I level Diagnosis Current: Yes (6) Gastric malignant neoplasm Diagnosis Current: Yes Attendance: patient personally and her sister over the phone Resuscitation Status: Full Code Discussion: Patient wishes to remain FULL CODE. Spoke to her sister and POA Ann Marie and she affirms that her sister is FULL CODE. The patient was previously living alone in [place] until 1 year ago when Ann Marie had to come and get her because she wa sapparently unable to take care of her self and was found living in her home full of thrash. Care Planning Goals: code status and POA confirmed Document(s) Completed: none Time Spent: <30 min but >16 min
[2020-02-15] MEDS: ASPIRIN 81 MG TABLET, CHEWABLE PO SCH ×2 (00:12→09:33)
[2020-02-15] MEDS: FAMOTIDINE 20 MG TABLET PO SCH ×3 (00:12→21:06)
[2020-02-15] MEDS: NORMAL SALINE 1000 ML 1,000 ML IV PRN ×2 (00:12→11:27)
[2020-02-15 06:53] LABS: ABSOLUTE BASOPHILS # (AUTO) 0.1 10^3/uL (0.0-0.2); ABSOLUTE EOSINOPHILS # (AUTO) 0.1 10^3/uL (0.0-0.6); ABSOLUTE LYMPHOCYTES (AUTO) 2.7 10^3/uL (0.5-4.7); ABSOLUTE MONOCYTES (AUTO) 0.9 10^3/uL (0.1-1.4); ABSOLUTE NEUT (AUTO) 5.3 10^3/uL (1.7-8.2); BASOPHILS % (AUTO) 0.9 % (0-2); EOSINOPHILS % (AUTO) 0.7 % (0-6); HEMOGLOBIN 12.9 g/dL (12.0-15.5); LYMPHOCYTES % (AUTO) 29.7 % (13-45); MEAN CORPUSCULAR HEMOGLOBIN 31.1 pg (27.0-33.4); MEAN CORPUSCULAR VOLUME 92 fl (80-97); PLATELET COUNT 144 10^3/uL (150-450); RED BLOOD COUNT 4.15 10^6/uL (3.72-5.28); RED CELL DISTRIBUTION WIDTH 13.9 % (11.5-14.0); SEGMENTED NEUTROPHILS % (AUTO) 58.7 % (42-78); TOTAL CELLS COUNTED % (AUTO) 100 %
[2020-02-15 07:10] LABS: ALBUMIN 3.5 g/dL (3.5-5.0); ALKALINE PHOSPHATASE 53 U/L (38-126); ANION GAP 8 (5-19); ASPARTATE AMINO TRANSFERASE 29 U/L (14-36); BILIRUBIN,DIRECT 0.3 mg/dL (0.0-0.4); BILIRUBIN,TOTAL 1.1 mg/dL (0.2-1.3); BLOOD UREA NITROGEN 19 mg/dL (7-20); CALCIUM 9.8 mg/dL (8.4-10.2); CARBON DIOXIDE 24 mmol/L (22-30); CHLORIDE 107 mmol/L (98-107); GLUCOSE 92 mg/dL (75-110); POTASSIUM 3.8 mmol/L (3.6-5.0); TOTAL PROTEIN 6.4 g/dL (6.3-8.2)
[2020-02-15] MEDS: ENOXAPARIN SODIUM INJ 40 MG/0.4 ML DISP.SYRIN SUBCUT SCH (09:32)
--- NOTE | 2020-02-15 11:20 | RADIOLOGY REPORT (SQ) ---
EXAM DESCRIPTION: CT ABD/PELVIS WITH IV ONLY IMAGES COMPLETED DATE/TIME: 02/14/2020 11:00 pm REASON FOR STUDY: gastric cancer COMPARISON: 06/25/2019. TECHNIQUE: CT scan of the abdomen and pelvis performed using helical scanning technique with dynamic intravenous contrast injection. No oral contrast. Images reviewed with lung, soft tissue, and bone windows. Reconstructed coronal and sagittal MPR images reviewed. Delayed images for evaluation of the urinary system also acquired. All images stored on PACS. All CT scanners at this facility use dose modulation, iterative reconstruction, and/or weight based d osing when appropriate to reduce radiation dose to as low as reasonably achievable (ALARA). [facility]: Dose Right [facility]: CareDose [facility]: Dose Right [facility]: Teradose 4D [facility]: [employer] CONTRAST TYPE AND DOSE: contrast/concentration: Isovue 350.00 mmol/ml; Total Contrast Delivered: 86. 0 ml; Total Saline Delivered: 38.9 ml RENAL FUNCTION: BUN 22 creatinine 0.79. RADIATION DOSE: CT Rad equipment meets quality standard of care and radiation dose reduction techniq ues were employed. CTDIvol: 16.9 - 20.4 mGy. DLP: 1880 mGy-cm.. LIMITATIONS: None. FINDINGS: LOWER CHEST: No significant findings. No nodules or infiltrates. LIVER: Normal size. No masses. No dilated ducts. SPLEEN: Normal size. No focal lesions. PANCREAS: No masses. No significant calcifications. No adjacent inflammation or peripancreatic fluid collections. Pancreatic duct not dilated. GALLBLADDER: No identified stones by CT criteria. No inflammatory changes to suggest cholecystitis. ADRENAL GLANDS: No significant masses or asymmetry. RIGHT KIDNEY AND URETER: No solid masses. No significant calcifications. No hydronephrosis or hyd roureter. LEFT KIDNEY AND URETER: No solid masses. No significant calcifications. No hydronephrosis or hydr oureter. AORTA AND VESSELS: No aneurysm. No dissection. Renal arteries, SMA, celiac without stenosis. RETROPERITONEUM: No retroperitoneal adenopathy, hemorrhage or masses. BOWEL AND PERITONEAL CAVITY: No masses or inflammatory changes. No free fluid or peritoneal masses. APPENDIX: Normal. PELVIS: Surgical clips. No mass. No free fluid. Normal bladder. ABDOMINAL WALL: No masses. No hernias. BONES: No significant or acute findings. Degenerative changes in the spine. OTHER: No other significant finding. IMPRESSION: NO SIGNIFICANT OR ACUTE FINDING IN THE ABDOMEN OR PELVIS ON CT SCAN WITH IV CONTRAST. TECHNICAL DOCUMENTATION: JOB ID: [id number] Quality ID # [id number]: Final reports with documentation of one or more dose reduction techniques (e.g., Au tomated exposure control, adjustment of the mA and/or kV according to patient size, use of iterative reconstruction technique) 2010 [employer]- All Rights Reserved Reading location - IP/workstation name: [email or web address]
--- NOTE | 2020-02-15 18:25 | PDOC PROGRESS REPORT ---
Subjective Progress Note for:: 02/15/20 Subjective:: Patient is awake and talking today. Admits to hallucinations but this is chronic and has been going on. She has been evaluated outpatient this. She notes history of hemophilia. She denies any pain or trouble breathing today. Able to ambulate with physical therapy using a walker. Reason For Visit: ALTERED MENTAL STATUS,HYPERKALEMIA Physical Exam Vital Signs: Temp Pulse Resp BP Pulse Ox 97.7 F 75 17 104/53 L 100 02/15/20 16:54 02/15/20 16:54 02/15/20 16:54 02/15/20 16:54 02/15/20 16:54 Intake & Output 02/14/20 02/15/20 02/16/20 06:59 06:59 06:59 Intake Total 1200 1720 Balance 1200 1720 Weight 93.6 kg General appearance: PRESENT: no acute distress, cooperative Neck exam: ABSENT: JVD Respiratory exam: PRESENT: unlabored. ABSENT: wheezes Neurological exam: PRESENT: alert, awake, oriented to person, oriented to place Results Laboratory Results: 02/15/20 05:59 02/15/20 05:59 02/14/20 02/14/20 02/14/20 20:30 20:30 21:36 WBC RBC Hgb Hct MCV MCH MCHC RDW Plt Count Seg Neutrophils % Carbonic Acid HCO3/H2CO3 Ratio ABG pH ABG pCO2 ABG pO2 ABG HCO3 ABG O2 Saturation ABG Base Excess FiO2 Sodium Cancelled 138.0 Potassium Cancelled 4.1 D Chloride Cancelled 103 Carbon Dioxide Cancelled 26 Anion Gap Cancelled 9 BUN Cancelled 19 Creatinine Cancelled 0.84 Est GFR ( Amer) Cancelled > 60 Est GFR (Non-Af Amer) Cancelled Glucose Cancelled 99 Calcium Cancelled 10.3 H Total Bilirubin Cancelled 0.9 AST Cancelled 32 Alkaline Phosphatase Cancelled 64 Total Protein Cancelled 7.6 Albumin Cancelled 4.4 PTH Intact Cancelled 02/14/20 02/14/20 02/15/20 21:36 21:44 05:59 WBC 9.0 RBC 4.15 Hgb 12.9 Hct 38.0 MCV 92 MCH 31.1 MCHC 34.0 RDW 13.9 Plt Count 144 L Seg Neutrophils % 58.7 Carbonic Acid 1.12 HCO3/H2CO3 Ratio 21:1 ABG pH 7.43 ABG pCO2 37.2 ABG pO2 83.1 ABG HCO3 23.9 ABG O2 Saturation 96.5 ABG Base Excess -0.2 FiO2 ROOM AIR Sodium Potassium Chloride Carbon Dioxide Anion Gap BUN Creatinine Est GFR ( Amer) Est GFR (Non-Af Amer) Glucose Calcium Total Bilirubin AST Alkaline Phosphatase Total Protein Albumin PTH Intact 83.3 H 02/15/20 05:59 WBC RBC Hgb Hct MCV MCH MCHC RDW Plt Count Seg Neutrophils % Carbonic Acid HCO3/H2CO3 Ratio ABG pH ABG pCO2 ABG pO2 ABG HCO3 ABG O2 Saturation ABG Base Excess FiO2 Sodium 138.8 Potassium 3.8 Chloride 107 Carbon Dioxide 24 Anion Gap 8 BUN 19 Creatinine 0.78 Est GFR ( Amer) > 60 Est GFR (Non-Af Amer) Glucose 92 Calcium 9.8 Total Bilirubin 1.1 AST 29 Alkaline Phosphatase 53 Total Protein 6.4 Albumin 3.5 PTH Intact 02/14/20 17:43 Blood Blood Culture (PCR) - Final Staphylococcus Species 02/14/20 02/14/20 02/14/20 13:45 20:30 21:36 Troponin I 0.036 Cancelled 0.042 NT-Pro-B Natriuret Pep 1230 H Impressions: Abdomen/Pelvis CT 02/14/20 00:00 IMPRESSION: NO SIGNIFICANT OR ACUTE FINDING IN THE ABDOMEN OR PELVIS ON CT SCAN WITH IV CONTRAST. Head CT 02/14/20 14:53 IMPRESSION: MILD CHRONIC CHANGES OF ATROPHY AND MICROVASCULAR ISCHEMIA. NO ACUTE PROCESS. EVIDENCE OF ACUTE STROKE: NO. Chest X-Ray 02/14/20 14:55 IMPRESSION: NO ACUTE RADIOGRAPHIC FINDING IN THE CHEST. Assessment and Plan - Diagnosis (1) Acute metabolic encephalopathy Is this a current diagnosis for this admission?: Yes Plan: -Seems to have resolved at this time. Head CT was notably negative. Possibly dehydration She has chronic history of hallucinations which has been evaluated as outpatient with psych from earlier this year. We will monitor her today and potential discharge tomorrow. (2) Hypercalcemia Is this a current diagnosis for this admission?: Yes Plan: Calcium of 10.8 on presentation improved with IV fluids. Does have history of recent use of Tums which could contribute to this. PTH is elevated indicative of primary hyperparathyroidism. At this time I do not identify any surgical indication. She can follow-up outpatient with primary care provider. (3) Dehydration Is this a current diagnosis for this admission?: Yes Plan: Encourage hydration. Did well with physical and Occupational Therapy (4) Elevated brain natriuretic peptide (BNP) level Is this a current diagnosis for this admission?: Yes Plan: Echo obtained. Result pending. Denies any shortness of breath orthopnea. Has nonpitting lower extremity edema. (5) Hyperkalemia Is this a current diagnosis for this admission?: Yes Plan: Resolved. Secondary to dehydration. (6) Gastric malignant neoplasm Qualifiers: Malignant neoplasm of stomach location: unspecified location Qualified Code(s): C16.9 - Malignant neoplasm of stomach, unspecified Is this a current diagnosis for this admission?: Yes Plan: Patient volunteers history of gastric malignancy. CT of the abdomen was unremarkable. - Time Time Spent with patient: Less than 15 minutes Anticipated Discharge Disposition: Home, Self Care Anticipated Discharge Timeframe: within 24 hours
--- NOTE | 2020-02-15 21:46 | XCELERA REPORT ---
[address] [address] Transthoracic Echocardiogram Report Name: NIEVES PRUITT Age: 74 yrs Gender: Female : 1945 Patient Status: Inpatient Patient Location: [address] [place], [place] [address] Study Date: 02/15/2020 09:03 AM History: CHF Height: 69 in Weight: 195 lb BSA: 2.0 m2 Procedure: A complete two-dimensional transthoracic echocardiogram was performed (2D, M-mode, spectral and color flow Doppler). The study was technically adequate with some images being suboptimal in quality. Reason For Study: leg edema, elevated BNP, CHF Previous Evaluation: No previous studies were available. History: CHF. Ordering Physician: THERESA LOVELACE Performed By: Angelika Wolf Interpretation Summary Left ventricular systolic function is normal. The Ejection Fraction estimate is 60-65% The right ventricle is normal in size and function. There is no aortic valve stenosis There is a trace amount of aortic regurgitation There is a trace amount of tricuspid regurgitation Right ventricular systolic pressure is estimated to be within upper limit of normal. There is no pericardial effusion. MMode/2D Measurements & Calculations RVDd: 2.1 cm LVIDd: 4.4 cm FS: 35.5 % Ao root diam: 2.8 cm IVSd: 1.2 cm LVIDs: 2.8 cm EDV(Teich): 88.2 ml Ao root area: 6.0 cm2 LVPWd: 1.2 cm ESV(Teich): 30.8 ml EF(Teich): 65.1 % Doppler Measurements & Calculations MV E max bea: MV dec slope: Ao V2 max: LV V1 max P.7 cm/sec 284.0 cm/sec2 139.4 cm/sec 6.1 mmHg MV A max bea: MV dec time: 0.21 sec Ao max PG: LV V1 max: 77.6 cm/sec 7.8 mmHg 123.1 cm/sec MV E/A: 0.77 PA V2 max: TR max bea: 59.7 cm/sec 237.4 cm/sec PA max P.4 mmHgTR max P.5 mmHg Left Ventricle The left ventricle is normal in size. There is moderate to severe concentric left ventricular hypertrophy. Left ventricular systolic function is normal. The Ejection Fraction estimate is 60-65%. Doppler measurements suggest impaired left ventricular relaxation, which is associated with grade I/IV or mild diastolic dysfunction. No regional wall motion abnormalities noted. Right Ventricle The right ventricle is normal in size and function. Atria The right atrium is normal. The left atrial size is normal. There is no Doppler evidence for an interatrial shunt. The interatrial septum is intact with no evidence for an atrial septal defect. Mitral Valve The mitral valve is grossly normal. There is no evidence of mitral valve prolapse. There is no mitral valve stenosis. There is no mitral regurgitation noted. Aortic Valve The aortic valve opens well. The aortic valve is normal in structure and function. The aortic valve is trileaflet. There is no aortic valve stenosis. There is a trace amount of aortic regurgitation. Tricuspid Valve The tricuspid valve is normal in structure and function. There is no tricuspid stenosis. There is a trace amount of tricuspid regurgitation. Right ventricular systolic pressure is estimated to be within upper limit of normal. Pulmonic Valve The pulmonic valve is normal in structure and function. There is a trace amount of pulmonic regurgitation. Great Vessels The aortic root is normal size. The inferior vena cava appeared small and collapsed with respiration (RAP 0-5 mmHg). Effusions There is no pericardial effusion. : THERESA LOVELACE Anil
[2020-02-16] MEDS: ASPIRIN 81 MG TABLET, CHEWABLE PO SCH (09:24)
[2020-02-16] MEDS: FAMOTIDINE 20 MG TABLET PO SCH (09:24)
[2020-02-16] MEDS: ENOXAPARIN SODIUM INJ 40 MG/0.4 ML DISP.SYRIN SUBCUT SCH (09:24)
[2020-02-16] MEDS ORDERED: LOSARTAN POTASSIUM 50 MG TABLET PO ONE (12:07)
--- NOTE | 2020-02-16 12:15 | PDOC DISCHARGE SUMMARY ---
Impression - Admit/DC Date/PCP Admission Date/Primary Care Provider: 02/14/20 20:37 Discharge Date: 02/16/20 - Discharge Diagnosis (1) Acute metabolic encephalopathy Is this a current diagnosis for this admission?: Yes (2) Dehydration Is this a current diagnosis for this admission?: Yes (3) Hypercalcemia Is this a current diagnosis for this admission?: Yes (4) Elevated brain natriuretic peptide (BNP) level Is this a current diagnosis for this admission?: Yes (5) Hyperkalemia Is this a current diagnosis for this admission?: Yes (6) Gastric malignant neoplasm Is this a current diagnosis for this admission?: Yes - Additional Information Resuscitation Status: Full Code Discharge Diet: As Tolerated Discharge Activity: Activity As Tolerated Referrals: BHAKTI MCNALLY MD [EMERITUS] - Prescriptions: Losartan Potassium [Cozaar 50 mg Tablet] 50 mg PO DAILY #30 tablet Home Medications: Acetaminophen [Tylenol] 325 mg PO DAILYP PRN 02/15/20 Aspirin/Acetaminophen/Caffeine [Excedrin Migraine Caplet] 1 each PO DAILYP PRN 02/15/20 Calcium Carbonate [Tums Chewable 500 mg Tab.chew] 500 mg PO DAILYP PRN 02/15/20 Multivit-Min36/Iron/Folic Acid [Geritol Complete Tablet] 1 each PO DAILYP PRN 20 Losartan Potassium [Cozaar 50 mg Tablet] 50 mg PO DAILY #30 tablet 02/16/20 History of Present Illiness History of Present Illness: According to admitting provider: NIEVES PRUITT is a 74 year old female, past medical history of stomach cancer who was brought to the ED due to altered mental status. Most of the history obtained from the patient's sister who is also her healthcare power of personal injury attorney. According to her sister she has been very lethargic for the past 2 weeks, with associated urinary frequency, constipation, abdominal pain. Her sister also stated that she has hallucinations both visual and auditory. Upon further history, her sister mentioned that the patient has been taking a lot of Tums and Rolaids for stomach pains. She has had to replace a big bottle of Tums that she has finished recently. She was also noted to have bilateral leg swelling. The sister denied any episodes of fever, cough, chest pain. The sister has been taking care of the patient for the past year but prior to that the patient was living in [place] alone. Apparently the patient was living in squalor at her home unable to take care of herself with trash all over her room hands the patient's sister took her back here and has been living with her ever since. He also told me that she was previously diagnosed with stomach cancer that is malignant. However she is not aware what was done for that. The patient also has a pacemaker but the sister is unaware as to the reason why she has a pacemaker. G0 vital signs blood pressure 161/69, heart rate of 78, temperature 98.8, O2 sat 95% on room air. CBC was unremarkable, CMP showed sodium 140.2, potassium 5.5, creatinine 0.79, calcium 10.8. Troponin 0.0 36, proBNP 1230, total protein 8.7. CT head was normal, x-ray unremarkable, EKG showed paced rhythm. Hospitalist service was consulted for admission for further evaluation and management. Hospital Course Hospital Course: Patient was admitted to the hospital with acute metabolic encephalopathy. CBC was unremarkable without evidence of leukocytosis. Vital signs were stable. Mild hypertension noted. Metabolic panel revealed hyperkalemia of 5.5 and mild hypercalcemia of 10.8. Urinalysis and urine culture were both negative. Head CT was unremarkable for any acute events. Patient was given IV fluids for suspected dehydration which likely played a role in her encephalopathy. With fluid administration, hypercalcemia and hyperkalemia improved. Hypercalcemia is thought to be secondary to overuse of Tums as well as likely primary hyperparathyroidism given elevated intact PTH. Currently no surgical intervention indicated for hyperparathyroidism and patient to follow-up with her primary care provider regarding this. Have encouraged patient to limit her use of Tums to once a day max twice a day as opposed to 3-4 times a day. Also noted patient has hypertension with multiple elevated blood pressure readings. Her sister confirms high BP readings at home and discussing this with a provider before but never got around to initiating patient on antihypertensive. I have placed patient on small dose of losartan. Patient was also evaluated for elevated BNP but she has no symptoms of orthopnea, PND and her edema he is actually nonpitting. She does not seem to be in heart failure at this time. Her echocardiogram also does not show any findings concerning for heart failure. She did have a CT of abdomen done on admission to evaluate her reported distant history of gastric cancer. The CT was unremarkable. Patient has worked with physical therapy recommends home health. Patient has a rolling walker at home. Have discussed patient's care and discharge plan with patient's sister/sole splitter Ann Marie today. Physical Exam Vital Signs: Temp Pulse Resp BP Pulse Ox 98.1 F 78 16 181/93 H 100 02/16/20 10:00 02/16/20 07:41 02/16/20 07:41 02/16/20 07:41 02/16/20 07:41 Intake & Output 02/15/20 02/16/20 02/17/20 06:59 06:59 06:59 Intake Total 1200 2220 1000 Balance 1200 2220 1000 Weight 93.6 kg 94.7 kg General appearance: PRESENT: no acute distress, cooperative Neck exam: ABSENT: JVD Respiratory exam: PRESENT: unlabored Musculoskeletal exam: PRESENT: ambulatory Neurological exam: PRESENT: alert, awake, oriented to person, oriented to place, oriented to time, oriented to situation Results Laboratory Results: WBC 9.0 10^3/uL (4.0-10.5) 02/15/20 05:59 RBC 4.15 10^6/uL (3.72-5.28) 02/15/20 05:59 Hgb 12.9 g/dL (12.0-15.5) 02/15/20 05:59 Hct 38.0 % (36.0-47.0) 02/15/20 05:59 MCV 92 fl (80-97) 02/15/20 05:59 MCH 31.1 pg (27.0-33.4) 02/15/20 05:59 MCHC 34.0 g/dL (32.0-36.0) 02/15/20 05:59 RDW 13.9 % (11.5-14.0) 02/15/20 05:59 Plt Count 144 10^3/uL (150-450) L 02/15/20 05:59 Lymph % (Auto) 29.7 % (13-45) 02/15/20 05:59 [place] % (Auto) 10.0 % (3-13) 02/15/20 05:59 Eos % (Auto) 0.7 % (0-6) 02/15/20 05:59 Baso % (Auto) 0.9 % (0-2) 02/15/20 05:59 Absolute Neuts (auto) 5.3 10^3/uL (1.7-8.2) 02/15/20 05:59 Absolute Lymphs (auto) 2.7 10^3/uL (0.5-4.7) 02/15/20 05:59 Absolute Monos (auto) 0.9 10^3/uL (0.1-1.4) 02/15/20 05:59 Absolute Eos (auto) 0.1 10^3/uL (0.0-0.6) 02/15/20 05:59 Absolute Basos (auto) 0.1 10^3/uL (0.0-0.2) 02/15/20 05:59 Seg Neutrophils % 58.7 % (42-78) 02/15/20 05:59 Carbonic Acid 1.12 mmol/L (1.05-1.35) 02/14/20 21:44 HCO3/H2CO3 Ratio 21:1 02/14/20 21:44 ABG pH 7.43 (7.35-7.45) 02/14/20 21:44 ABG pCO2 37.2 mmHg (35-45) 02/14/20 21:44 ABG pO2 83.1 mmHg (80-100) 02/14/20 21:44 ABG HCO3 23.9 mmol/L (20-24) 02/14/20 21:44 ABG Total CO2 25.0 mmol/L (21-25) 02/14/20 21:44 ABG O2 Saturation 96.5 % (94-98) 02/14/20 21:44 ABG Base Excess -0.2 mmol/L 02/14/20 21:44 FiO2 ROOM AIR 02/14/20 21:44 Sodium 138.8 mmol/L (137-145) 02/15/20 05:59 Potassium 3.8 mmol/L (3.6-5.0) 02/15/20 05:59 Chloride 107 mmol/L (98-107) 02/15/20 05:59 Carbon Dioxide 24 mmol/L (22-30) 02/15/20 05:59 Anion Gap 8 (5-19) 02/15/20 05:59 BUN 19 mg/dL (7-20) 02/15/20 05:59 Creatinine 0.78 mg/dL (0.52-1.25) 02/15/20 05:59 Est GFR ( Amer) > 60 (>60) 02/15/20 05:59 Est GFR (Non-Af Amer) Cancelled 02/14/20 20:30 Est GFR (MDRD) Non-Af > 60 (>60) 02/15/20 05:59 Glucose 92 mg/dL (75-110) 02/15/20 05:59 Calcium 9.8 mg/dL (8.4-10.2) 02/15/20 05:59 Total Bilirubin 1.1 mg/dL (0.2-1.3) 02/15/20 05:59 Direct Bilirubin 0.3 mg/dL (0.0-0.4) 02/15/20 05:59 Neonat Total Bilirubin Not Reportable 02/15/20 05:59 Neonat Direct Bilirubin Not Reportable 02/15/20 05:59 Neonat Indirect Bili Not Reportable 02/15/20 05:59 AST 29 U/L (14-36) 02/15/20 05:59 ALT 11 U/L (<35) 02/15/20 05:59 Alkaline Phosphatase 53 U/L (38-126) 02/15/20 05:59 Troponin I 0.042 ng/mL 02/14/20 21:36 NT-Pro-B Natriuret Pep 1230 pg/mL (<450) H 02/14/20 13:45 Total Protein 6.4 g/dL (6.3-8.2) 02/15/20 05:59 Albumin 3.5 g/dL (3.5-5.0) 02/15/20 05:59 EGFR Cancelled 02/14/20 20:30 Vitamin D 25-Hydroxy 19.6 ng/mL (14.7-68.3) 02/14/20 21:36 Vit D 1,25-Dihydroxy Cancelled 02/14/20 20:30 PTH Intact 83.3 pg/mL (10.0-65.0) H 02/14/20 21:36 PTH Related Peptide Cancelled 02/14/20 20:30 Urine Color STRAW 02/14/20 13:30 Urine Appearance CLEAR 02/14/20 13:30 Urine pH 5.0 (5.0-9.0) 02/14/20 13:30 Ur Specific [place] 1.013 02/14/20 13:30 Urine Protein NEGATIVE mg/dL (NEGATIVE) 02/14/20 13:30 Urine Glucose (UA) NEGATIVE mg/dL (NEGATIVE) 02/14/20 13:30 Urine Ketones 20 mg/dL (NEGATIVE) H 02/14/20 13:30 Urine Blood SMALL (NEGATIVE) H 02/14/20 13:30 Urine Nitrite NEGATIVE (NEGATIVE) 02/14/20 13:30 Urine Bilirubin NEGATIVE (NEGATIVE) 02/14/20 13:30 Urine Urobilinogen NEGATIVE mg/dL (<2.0) 02/14/20 13:30 Ur Leukocyte Esterase NEGATIVE (NEGATIVE) 02/14/20 13:30 Urine WBC (Auto) 6 /HPF 02/14/20 13:30 Urine RBC (Auto) 6 /HPF 02/14/20 13:30 Squamous Epi Cells Auto 1 /HPF 02/14/20 13:30 Urine Mucus (Auto) RARE /LPF 02/14/20 13:30 Urine Ascorbic Acid 40 (NEGATIVE) H 02/14/20 13:30 Urine Opiates Screen NEGATIVE 02/14/20 13:30 Urine Methadone Screen NEGATIVE 02/14/20 13:30 Acetaminophen < 10 ug/mL (10-30) L 02/14/20 13:45 Ur Barbiturates Screen NEGATIVE 02/14/20 13:30 Ur Phencyclidine Scrn NEGATIVE 02/14/20 13:30 Ur Amphetamines Screen NEGATIVE 02/14/20 13:30 U Benzodiazepines Scrn NEGATIVE 02/14/20 13:30 Urine Cocaine Screen NEGATIVE 02/14/20 13:30 U Marijuana (THC) Screen NEGATIVE 02/14/20 13:30 02/14/20 02/14/20 02/14/20 13:45 20:30 21:36 Troponin I 0.036 Cancelled 0.042 NT-Pro-B Natriuret Pep 1230 H Impressions: Abdomen/Pelvis CT 02/14/20 00:00 IMPRESSION: NO SIGNIFICANT OR ACUTE FINDING IN THE ABDOMEN OR PELVIS ON CT SCAN WITH IV CONTRAST. Head CT 02/14/20 14:53 IMPRESSION: MILD CHRONIC CHANGES OF ATROPHY AND MICROVASCULAR ISCHEMIA. NO ACUTE PROCESS. EVIDENCE OF ACUTE STROKE: NO. Chest X-Ray 02/14/20 14:55 IMPRESSION: NO ACUTE RADIOGRAPHIC FINDING IN THE CHEST. Plan Time Spent: Less than 30 Minutes Stroke Is this a Stroke Patient?: No Acute Heart Failure Is this a Heart Failure Patient?: No
[2020-02-16 13:19] VITALS: BP 143/81
[2020-02-16 14:11] LABS: VITAMIN D 1,25 DIHYDROXY 75.9 pg/mL (19.9-79.3)
[2020-02-17] MEDS ORDERED: INFLUENZA QUAD (6MOS+) 2020-21 VAC 0.5 ML SYR IM ONE (08:00)
== END 2020-02-16 15:50 | disposition home health service (06) ==
LOC: ER 13:10 → EH 20:37 → 4W 23:24
PROVIDERS: ADMIT Internal Medicine; ATTEND Internal Medicine
DX: G93.41 Metabolic encephalopathy (principal); E86.0 Dehydration; E83.52 Hypercalcemia; E87.5 Hyperkalemia; C16.9 Malignant neoplasm of stomach, unspecified; I10 Essential (primary) hypertension; M62.81 Muscle weakness (generalized); R63.0 Anorexia; R78.81 Bacteremia; B95.8 Unspecified staphylococcus as the cause of diseases classified elsewhere; G89.29 Other chronic pain; M54.5 Low back pain; R60.0 Localized edema; K59.00 Constipation, unspecified; D66 Hereditary factor VIII deficiency; R79.89 Other specified abnormal findings of blood chemistry; I45.10 Unspecified right bundle-branch block; Z79.82 Long term (current) use of aspirin; Z79.899 Other long term (current) drug therapy; Z95.0 Presence of cardiac pacemaker
CPT/HCPCS: 93005; 99285; 96361; 96374; 36415 ×2; 87040; 87086; 82803; 80307 ×2; 85025 ×2; 87070; 87077; 80053 ×2; 81001; 84484; 82652; 82397; 82306; 83970; 87150 ×26; 83880; 93306; 71046; 70450; 74177; 93010; 36600; 97530 ×3; 97110; 97116 ×2; 97162; 97166; G0378 ×4; A9270 ×5; J2310; J1650 ×2; J7030 ×2